=== PATIENT | female | born 1940 | race American Indian/Alaskan Native ===

== ENCOUNTER 2019-04-05 09:17 | Outpatient (CLI) | payer MEDICARE ==
--- NOTE | 2019-04-06 15:59 | Cat Scan Report ---
PROCEDURE: CT ANGIO ABD/FEMORAL ABD AORTA HISTORY: ATHEROSCLEROSIS OF [place] ARTERIES OF EXTREMITIES WITH INTERMITTE FINDINGS: Contrast-enhanced CT angiography of the abdomen, pelvis and both legs was performed followi ng the intravenous administration of iodinated contrast. Sagittal and coronal MIP reformatted images were generated. The heart is normal in size. There is bibasilar atelectasis. There is a hiatal hernia. ABDOMEN: The abdominal aorta is normal in size. There is atherosclerosis of abdominal aorta and there are suraj ons of aortic mural thrombus. There is a mild stenosis of the origin of the celiac axis and mild stenosis of the origin of the supe rior mesenteric artery. The inferior mesenteric artery is patent. There is a stent in the proximal aspect of the left renal artery. The left renal artery is patent. Th e right renal artery is patent. There is a left lobe hepatic cyst. There is mild fatty infiltration of the liver. There is a splenule . The spleen is normal in size. The adrenal glands are within normal limits. No focal pancreatic lesion is seen. There is no renal or ureteral calculus Pelvis: The right and left common iliac, external iliac and common femoral arteries appear patent. Both inter nal iliac arteries are patent proximally but are not well seen distally. There is a normal appendix. There is no evidence of diverticulitis. There has been a hysterectomy. The urinary bladder is within normal limits. CTA right leg: There is a moderate stenosis of the origin of the right superficial femoral artery but the vessel rem ains patent. The deep femoral artery is patent. The popliteal artery is atherosclerotic and somewhat small, but remains patent. Below the knee, the anterior tibial artery is patent and continues to the level of the ankle. It crosses the ankle as a patent dorsalis pedis. The tibioperoneal trunk is occluded. The peroneal artery is occluded. The posterior tibial artery is occluded proximally. There is reconstitution the posterior tibial for a short segment in the mid calf but occludes distally. There is reconstitution of a small medial plantar arch. CTA left leg: There is mild stenosis of the origin of the superficial femoral artery but the vessel remains patent. The deep femoral artery is patent. There are several moderate stenoses of the distal SFA but the ves lanie remains patent. The popliteal artery is patent. Below the knee the anterior tibial artery is patent. It displays several short small short segment st enosis in its midportion but remains patent. It crosses the ankle as a patent dorsalis pedis. The tib ioperoneal trunk is patent. The peroneal artery is patent to the level of the ankle. The posterior ti bial artery is not seen and is occluded. No medial plantar arch is seen. IMPRESSION: Hiatal hernia CTA ABDOMEN: Atherosclerosis of the abdominal aorta without aneurysmal dilation of the aorta Pelvis: The common iliac, external iliac and common femoral arteries are atherosclerotic but patent CTA right leg: moderate stenosis of origin of right SFA Single vessel runoff to right ankle via patent anterior tibial artery CTA left leg: Two vessel runoff to the left ankle via anterior tibial and peroneal arteries This document is electronically signed by Malick Pablo MD., April 06 2019 03:56:28 PM ET
== END 2019-04-05 09:18 | disposition home or self-care (01) ==
LOC: CT 09:17
PROVIDERS: ATTEND Surgery Vascular Surgery
DX: K44.9 Diaphragmatic hernia without obstruction or gangrene (principal); I70.0 Atherosclerosis of aorta; I77.4 Celiac artery compression syndrome; K76.0 Fatty (change of) liver, not elsewhere classified
CPT/HCPCS: 36415; 75635; 82565; 84520; Q9967

== ENCOUNTER 2019-04-19 11:15 | Outpatient (CLI) | payer MEDICARE ==
--- NOTE | 2019-05-04 12:53 | Magnetic Resonance Report ---
MRI LUMBAR SPINE 04/19/2019 INDICATION / CLINICAL INFORMATION: LOW BACK PAIN. COMPARISON: None available. FINDINGS: GENERAL OBSERVATIONS: Unenhanced and enhanced MR images of the lumbar spine were obtained. Correlatio n is made to CT images of the abdomen from 04/05/2019. There is no evidence of acute abnormality. [id number] ANALYSIS: L5-S1: Disc profile is well preserved. Mild facet degenerative changes are present. L4-5: Grade 1 anterolisthesis associated with prominent facet degenerative changes and diffuse disc b ulging, slightly more pronounced on the left. Moderate central canal narrowing is present, with super imposed left lateral recess narrowing and encroachment. L3-4: Unremarkable. L2-3: Minimal diffuse disc bulging. L1-2: Unremarkable. Small central protrusions or superimposed on diffuse disc bulging at the T12-L1 and T11-12 levels. BONE MARROW: There is a focal area of bone marrow signal abnormality in the right posterior aspect of L5, which corresponds to an area of increased bone density in a pattern consistent with bone island is seen on the prior CT scan of the abdomen. There is evidence of a hemangioma present in the right upper aspect of the L4 vertebral body. SPINAL CORD/CAUDA EQUINA: Unremarkable. PARASPINAL SOFT TISSUES: No significant abnormality. IMPRESSION: Degenerative changes as described above, including grade 1 anterolisthesis with left lateralization a t L4-5. (Note: The date on the images is 04/19/2019. They are presented to me for interpretation on 05/05/2019.) Signer Name: Gil Weathers MD Signed: 05/04/2019 12:48 PM Workstation Name: [id number]
== END 2019-04-19 11:16 | disposition home or self-care (01) ==
LOC: MRI 11:15
PROVIDERS: ATTEND Surgery Vascular Surgery
DX: M43.16 Spondylolisthesis, lumbar region (principal); M48.061 Spinal stenosis, lumbar region without neurogenic claudication; M51.26 Other intervertebral disc displacement, lumbar region; I10 Essential (primary) hypertension; K21.9 Gastro-esophageal reflux disease without esophagitis; Z90.710 Acquired absence of both cervix and uterus
CPT/HCPCS: 72158; A9577

== ENCOUNTER 2019-11-15 08:24 | Day surgery (SDC) | payer MEDICARE ==
[2019-11-15 09:07] LABS: Basophils # (Auto) 0.1 K/mm3 (0.0-0.1); Basophils % (Auto) 1.3 % (0.0-1.8); Eosinophils # (Auto) 0.3 K/mm3 (0.0-0.4); Eosinophils % (Auto) 3.3 % (0.0-4.3); Hematocrit 36.3 % (30.3-42.9); Lymphocytes # (Auto) 2.5 K/mm3 (1.2-5.4); Lymphocytes % (Auto) 30.9 % (13.4-35.0); Mean Corpuscular HGB Conc 33 % (30-34); Mean Corpuscular Volume 77 fl (79-97); Monocytes # (Auto) 0.7 K/mm3 (0.0-0.8); Monocytes % (Auto) 8.5 % (0.0-7.3); Platelet Count 329 K/mm3 (140-440); Red Blood Count 4.72 M/mm3 (3.65-5.03); Red Cell Distribution Width 16.9 % (13.2-15.2)
[2019-11-15] MEDS: SODIUM CHLORIDE 0.9% 500 ML 500 ML IV SCH ×2 (09:26→12:48)
[2019-11-15 09:35] LABS: INR 1.01 (0.87-1.13); Partial Thromboplastin Time 31.4 Sec. (24.2-36.6)
[2019-11-15 10:10] LABS: Calcium 9.7 mg/dL (8.4-10.2)
[2019-11-15] MEDS ORDERED: HEPARIN/NS 5000 UNIT/500ML 1,000 ML IR ONE (12:01)
[2019-11-15] MEDS ORDERED: NITROGLYCERIN SYRINGE 3 ML ONE (12:02)
[2019-11-15] MEDS ORDERED: VERAPAMIL 5 MG/2 ML INJ ONE (12:02)
[2019-11-15] MEDS: fentaNYL 100 MCG/2 ML INJ ONE ×3 (12:24→13:20)
[2019-11-15] MEDS: MIDAZOLAM 2 MG/2 ML INJ ONE ×3 (12:24→13:20)
[2019-11-15] MEDS: LIDOCAINE (2%) 20 MG/1 ML VIAL 20 ML MDV INFILTRATI ONE ×2 (12:26→14:15)
[2019-11-15] MEDS: HEPARIN 10,000 UNITS/10 ML VIAL ONE ×3 (12:38→13:16)
[2019-11-15] MEDS ORDERED: ONDANSETRON 4 MG/2 ML INJ ONE (13:57)
[2019-11-15] MEDS ORDERED: HEPARIN/NS 5000 UNIT/500ML 500 ML IR ONE (14:13)
--- NOTE | 2019-11-15 15:56 | Short Stay Summary ---
Short Stay Documentation Date of service: 11/15/19 Narrative H&P: See H&P - History H&P: obtained from office - Allergies and Medications Current Medications: Allergies Tetracyclines Allergy (Verified 10/25/13 13:31) Unknown Home Medications Medication Instructions Recorded Confirmed Last Taken Type Glimepiride [Amaryl] 2 mg PO QAM 05/07/16 11/15/19 11/14/19 History 2 mg Atorvastatin [Lipitor] 40 mg PO QHS #30 tab 05/08/16 11/15/19 11/15/19 Rx 40 mg Potassium Chloride [Klor-Con 8] 8 meq PO QDAY #30 tablet 05/08/16 11/15/19 11/15/19 Rx 8 meq amLODIPine 10 mg PO DAILY #30 tab 05/08/16 11/15/19 11/15/19 Rx 10 mg Aspirin [Adult Aspirin] 81 mg PO DAILY 11/15/19 11/15/19 11/15/19 History 81 mg Clopidogrel [Plavix] 75 mg PO DAILY 11/15/19 11/15/19 11/15/19 History 75 mg Doxazosin [Cardura] 4 mg PO DAILY 11/15/19 11/15/19 11/15/19 History 4 mg Active Medications Sodium Chloride (Nacl 0.9% 500 Ml) 500 mls @ 50 mls/hr IV DIRECT ALYSSA Last Admin: 11/15/19 12:48 Dose: 50 mls/hr Documented by: - Brief post op/procedure progress note Date of procedure: 11/15/19 Pre-op diagnosis: Peripheral Vascular Disease w/ Symptomatic Left Subclavian Artery Occlusion Post-op diagnosis: same Procedure: 1. Ultrasound-Guided Access Left Common Femoral Artery 2. Ultrasound-Guided Access Left Radial Artery 3. Diagnostic Thoracic Aortogram (No Previous Films for Comparison) 4. Diagnostic Left Upper Extremity Arteriogram 5. Angioplasty of Left Subclavian Artery with 7 x 80 IN.Pact Drug-Coated Balloon x 2 6. Angioplasty and Stent of Left Axillary Artery with 6 x 120 IN.Pact Drug- Coated Balloon and 6 x 5 cm Viabahn Stent Graft 7. Closure of Left Femoral Arteriotomy with ProGlide Closure Device 8. Radiologic Supervision and Interpretation Anesthesia: local, other (Monitored Moderate Sedation) Surgeon: MONA LEDEZMA Estimated blood loss: minimal Pathology: none Condition: stable - Disposition Condition at discharge: Good Disposition: [id number] TO HOME OR SELFCARE Short Stay Discharge Plan Activity: other (no heavy lifting with left arm. No strenuous activity for 24 hours) Wound: remove dressing (from left groin and left wrist in 24 hours) Follow up with: MONA LEDEZMA MD [Staff Physician] - 14 Days Prescriptions: Aspirin EC [Halfprin EC] 81 mg PO QDAY #90 tablet. HYDROcodone/APAP 7.5-325 [Porcupine 7.5/325] 1 each PO Q6HR PRN #30 tablet PRN Reason: Pain
--- NOTE | 2019-11-15 16:01 | Operative Report ---
Operative Report Operative Report: Date of Procedure: 11/15/2019 Pre-operative Diagnosis: Peripheral Vascular Disease with Symptomatic Left Subc lavian Artery Occlusion Post-operative Diagnosis: Same Procedure(s): 1. Ultrasound-Guided Access Left Common Femoral Artery 2. Ultrasound-Guided Access Left Radial Artery 3. Diagnostic Thoracic Aortogram (No Previous Films for Comparison) 4. Diagnostic Left Upper Extremity Arteriogram 5. Angioplasty of Left Subclavian Artery with 7 x 80 IN.Pact Drug-Coated Balloon x 2 6. Angioplasty and Stent of Left Axillary Artery with 6 x 120 IN.Pact Drug- Coated Balloon and 6 x 5 cm Viabahn Stent Graft 7. Closure of Left Femoral Arteriotomy with ProGlide Closure Device 8. Radiologic Supervision and Interpretation Surgeon: Garth Lopez M.D. Landscape Account Manager: Ralph Anesthesia: Local and IV Sedation EBL: Minimal Counts: Correct Complications: None Condition: Stable Specimen: None Indication: The patient is a 79-year-old female with a history of peripheral vascular disease who was found to have a 40 point differential between her right and left systolic blood pressures. An arterial duplex of her upper extremities revealed a subclavian artery occlusion. She described complaints of left upper extremity weakness and a history of dropping things with her left hand. Given this she was offered a diagnostic thoracic aortogram with a selective subclavian arteriogram and possible intervention. She was given the risk, benefits, and alternative procedures and consented to the procedure. Angiographic Findings: The diagnostic aortogram revealed that the brachiocephalic artery was patent without significant flow-limiting stenosis. The proximal right subclavian and proximal right common carotid artery were both patent without significant flow- limiting stenosis. The proximal left common carotid artery was patent without significant flow-limiting stenosis. The proximal left subclavian artery was patent however there was an occlusion approximately centimeters after the thyrocervical trunk with what appeared to be reconstitution in the proximal axillary artery. The left lower extremity arteriogram that the remainder of the axillary artery was patent without significant flow-limiting stenosis. The patient had a radial artery that originated from the axillary artery and was patent throughout its course. The brachial artery was patent throughout its course without any significant flow-limiting stenosis. The ulnar artery and interosseous artery were both patent without any evidence of flow-limiting stenosis. After intervention the subclavian artery and axillary artery were both patent with approximately 15% residual stenosis. Description of Procedure: The patient was brought to the [facility] and laid in supine position. After a timeout was performed her left groin and left wrist were prepped and draped in normal sterile fashion. Ultrasound was used to identify the left common femoral artery and confirm. Once patency was confirmed the overlying skin and soft tissue was anesthetized with lidocaine. An 11 blade was used to make a small stab incision and a curved hemostat was used to bluntly dissect down to the anterior surface of the common femoral artery under ultrasound guidance. A 21- gauge micropuncture needle was used with ultrasound guidance to enter the left common femoral artery and a 0.018 micropuncture wire was advanced into the artery. The needle was removed and exchanged for micropuncture sheath and after removing the wire and dilator a 0.035 Bentson wire was advanced into the aorta under fluoroscopy. The micropuncture sheath was exchanged for 5 [place]ian sheath and then a 5 [place]ian pigtail was advanced into the thoracic aorta under fluoroscopy. A diagnostic thoracic aortogram was performed with the previously described findings. I then used a vertebral catheter and the Bentson wire to cannulate the proximal subclavian artery and then I exchanged the 5 [place] sheath for a 7 [place]ian 65 cm destination sheath by Seldinger technique. At this point I systemically heparinized the patient with 3000 units of heparin IV. I was able to cannulate the occluded portion of the subclavian artery using a 0.018 V18 wire and a Navicross catheter however I was unable to reenter the axillary artery. I decided to attempt to cross the occlusion in retrograde fashion. I used ultrasound to identify the radial artery and used micropuncture technique to access the artery in retrograde fashion after anesthetizing the skin with lidocaine. I placed a 5 [place] sheath by Seldinger technique and injected a radial cocktail that included nitroglycerin, verapamil, and heparin. I advanced a vertebral catheter and a Bentson wire into the axillary artery and was able to cross the occluded axillary artery using the Bentson wire and vertebral catheter. I was able to enter the occluded subclavian artery using the V 18 wire and the vertebral catheter. I used a Tulip Snare Catheter to snare the V 18 wire and pulled the wire through the left femoral artery sheath. I then advanced the Navicross Catheter over the V 18 wire and through the axillary artery which was confirmed by arteriogram. At that point I performed the left lower extremity arteriogram which was previously described. I advanced the V 18 wire down the arm and then performed angioplasty of the axillary artery using a 6 x 120 IN.Pact Drug-Coated Balloon. I performed angioplasty of the subclavian artery using two 7 x 80 IN.Pact Drug-Coated Balloons. This resulted in less than 15% residual stenosis within the subclavian artery however there was a small segment of the axillary artery with a residual stenosis of approximately 70%. I performed additional angioplasty of this area however the residual stenosis persisted so I placed a 6 x 5 cm Viabahn Stent Graft I dilated with a 6 mm balloon with a result of less than 10% residual stenosis. At this point I remove the V 18 wire and placed a Bentson wire and used a Pro-glide closure device to close the left femoral arteriotomy, removing the sheath. A sterile dressing was then applied to the left groin. A TR Band was placed on the left radial artery after removing the sheath and the patient was transported to the recovery area in stable condition.
[2019-11-15 17:35] VITALS: BP 168/73
== END 2019-11-15 17:31 | disposition home or self-care (01) ==
LOC: CATHLABREC 08:24
PROVIDERS: ATTEND Surgery Vascular Surgery
DX: I70.8 Atherosclerosis of other arteries (principal); I42.9 Cardiomyopathy, unspecified; I73.9 Peripheral vascular disease, unspecified; I10 Essential (primary) hypertension; K21.9 Gastro-esophageal reflux disease without esophagitis; Z79.899 Other long term (current) drug therapy; Z79.82 Long term (current) use of aspirin; Z90.710 Acquired absence of both cervix and uterus; Z87.442 Personal history of urinary calculi; Z82.61 Family history of arthritis; Z88.8 Allergy status to other drugs, medicaments and biological substances; Z82.49 Family history of ischemic heart disease and other diseases of the circulatory system; Z98.890 Other specified postprocedural states
CPT/HCPCS: 36221; 36415; 37236; 37246; 75605; 75710; 76937; 80048; 85025; 85610; 85730; 99156; 99157; C1725; C1760; C1769; C1773; C1874; C1887; C1894; C2623; J1644; J2250; J2405; J3010; J7040; 0505T; 37247; Q9967

== ENCOUNTER 2019-12-01 11:47 | Inpatient (IN) | payer MEDICARE ==
[2019-12-01] MEDS ORDERED: SODIUM CHLORIDE 0.9% 1000 ML 1,000 ML IV ONE (13:06)
--- NOTE | 2019-12-01 13:23 | Emergency Department Report ---
<RASHMI PLUMMER - Last Filed: 12/01/19 17:15> ED GI Bleed HPI - General Chief complaint: GI Bleed Stated complaint: GI BLEED/ABD PAIN Time Seen by Provider: 12/01/19 12:49 - Related Data Home Medications Medication Instructions Recorded Confirmed Last Taken Glimepiride [Amaryl] 2 mg PO QAM 05/07/16 11/15/19 11/14/19 2 mg Aspirin [Adult Aspirin] 81 mg PO DAILY 11/15/19 11/15/19 11/15/19 81 mg Clopidogrel [Plavix] 75 mg PO DAILY 11/15/19 11/15/19 11/15/19 75 mg Doxazosin [Cardura] 4 mg PO DAILY 11/15/19 11/15/19 11/15/19 4 mg Previous Rx's Medication Instructions Recorded Last Taken Type Atorvastatin [Lipitor] 40 mg PO QHS #30 tab 05/08/16 11/15/19 Rx 40 mg Potassium Chloride [Klor-Con 8] 8 meq PO QDAY #30 tablet 05/08/16 11/15/19 Rx 8 meq amLODIPine 10 mg PO DAILY #30 tab 05/08/16 11/15/19 Rx 10 mg Aspirin EC [Halfprin EC] 81 mg PO QDAY #90 tablet. 11/15/19 Unknown Rx HYDROcodone/APAP 7.5-325 [[place] 1 each PO Q6HR PRN #30 tablet 11/15/19 Unknown Rx 7.5/325] Allergies Allergy/AdvReac Type Severity Reaction Status Date / Time Tetracyclines Allergy Unknown Verified 10/25/13 13:31 ED Past Medical Hx - Medications Home Medications: Home Medications Medication Instructions Recorded Confirmed Last Taken Type Glimepiride [Amaryl] 2 mg PO QAM 05/07/16 11/15/19 11/14/19 History 2 mg Atorvastatin [Lipitor] 40 mg PO QHS #30 tab 05/08/16 11/15/19 11/15/19 Rx 40 mg Potassium Chloride [Klor-Con 8] 8 meq PO QDAY #30 tablet 05/08/16 11/15/19 11/15/19 Rx 8 meq amLODIPine 10 mg PO DAILY #30 tab 05/08/16 11/15/19 11/15/19 Rx 10 mg Aspirin EC [Halfprin EC] 81 mg PO QDAY #90 tablet. 11/15/19 Unknown Rx Aspirin [Adult Aspirin] 81 mg PO DAILY 11/15/19 11/15/19 11/15/19 History 81 mg Clopidogrel [Plavix] 75 mg PO DAILY 11/15/19 11/15/19 11/15/19 History 75 mg Doxazosin [Cardura] 4 mg PO DAILY 11/15/19 11/15/19 11/15/19 History 4 mg HYDROcodone/APAP 7.5-325 [[place] 1 each PO Q6HR PRN #30 tablet 11/15/19 Unknown Rx 7.5/325] ED Course - Reevaluation(s) Reevaluation #1: 12/01/19 17:08 While in the ED patient developed chest pain. EKG shows sinus tach without signs of ischemia. Troponin sent and initial set negative. Patient is pain- free at this time. Calvin reports that rectal exam was positive for gross blood. Patient's family member showed me pictures of patient's coffee-ground emesis and black stool while at home. Patient is unclear how long her stool has been back because she does not look at her bowel movements. Patient does take aspirin and Plavix - Consultations Consultation #1: 12/01/19 17:08 case d/w Dr Roula Lorenzo (GI), recommend Protonix bolus followed by drip. Will consult for evaluation ED Medical Decision Making - Lab Data Result diagrams: 12/01/19 13:21 12/01/19 13:21 Lab Results 12/01/19 12/01/19 12/01/19 Range/Units 13:21 13:21 13:21 WBC 11.0 (4.5-11.0) K/mm3 RBC 2.82 L (3.65-5.03) M/mm3 Hgb 7.1 L (10.1-14.3) gm/dl Hct 21.9 L (30.3-42.9) % MCV 78 L (79-97) fl MCH 25 L (28-32) pg MCHC 33 (30-34) % RDW 16.6 H (13.2-15.2) % Plt Count 283 (140-440) K/mm3 Lymph % (Auto) 11.3 L (13.4-35.0) % [place] % (Auto) 4.1 (0.0-7.3) % Eos % (Auto) 0.3 (0.0-4.3) % Baso % (Auto) 0.9 (0.0-1.8) % Lymph # 1.2 (1.2-5.4) K/mm3 [place] # 0.5 (0.0-0.8) K/mm3 Eos # 0.0 (0.0-0.4) K/mm3 Baso # 0.1 (0.0-0.1) K/mm3 Seg Neutrophils % 83.4 H (40.0-70.0) % Seg Neutrophils # 9.2 H (1.8-7.7) K/mm3 PT 14.7 (12.2-14.9) Sec. INR 1.13 (0.87-1.13) APTT 24.0 L (24.2-36.6) Sec. Sodium 142 (137-145) mmol/L Potassium 4.3 (3.6-5.0) mmol/L Chloride 105.3 (98-107) mmol/L Carbon Dioxide 15 L (22-30) mmol/L Anion Gap 26 mmol/L BUN 44 H (7-17) mg/dL Creatinine 1.2 (0.7-1.2) mg/dL Estimated GFR 53 ml/min BUN/Creatinine Ratio 37 % Glucose 204 H (65-100) mg/dL Lactic Acid (0.7-2.0) mmol/L Calcium 8.1 L (8.4-10.2) mg/dL Total Bilirubin < 0.20 (0.1-1.2) mg/dL AST 10 (5-40) units/L ALT 7 (7-56) units/L Alkaline Phosphatase 84 (35-129) units/L Troponin T (0.00-0.029) ng/mL Total Protein 5.8 L (6.3-8.2) g/dL Albumin 2.5 L (3.9-5) g/dL Albumin/Globulin Ratio 0.8 % Lipase 37 (13-60) units/L Urine Color (Yellow) Urine Turbidity (Clear) Urine pH (5.0-7.0) Ur Specific Imogene (1.003-1.030) Urine Protein (Negative) mg/dL Urine Glucose (UA) (Negative) mg/dL Urine Ketones (Negative) mg/dL Urine Blood (Negative) Urine Nitrite (Negative) Urine Bilirubin (Negative) Urine Urobilinogen (<2.0) mg/dL Ur Leukocyte Esterase (Negative) Urine WBC (Auto) (0.0-6.0) /HPF Urine RBC (Auto) (0.0-6.0) /HPF U Epithel Cells (Auto) (0-13.0) /HPF Urine Bacteria (Auto) (Negative) /HPF Urine Mucus /HPF Blood Type Antibody Screen Crossmatch 12/01/19 12/01/19 12/01/19 Range/Units 15:15 15:15 15:27 WBC (4.5-11.0) K/mm3 RBC (3.65-5.03) M/mm3 Hgb (10.1-14.3) gm/dl Hct (30.3-42.9) % MCV (79-97) fl MCH (28-32) pg MCHC (30-34) % RDW (13.2-15.2) % Plt Count (140-440) K/mm3 Lymph % (Auto) (13.4-35.0) % [place] % (Auto) (0.0-7.3) % Eos % (Auto) (0.0-4.3) % Baso % (Auto) (0.0-1.8) % Lymph # (1.2-5.4) K/mm3 [place] # (0.0-0.8) K/mm3 Eos # (0.0-0.4) K/mm3 Baso # (0.0-0.1) K/mm3 Seg Neutrophils % (40.0-70.0) % Seg Neutrophils # (1.8-7.7) K/mm3 PT (12.2-14.9) Sec. INR (0.87-1.13) APTT (24.2-36.6) Sec. Sodium (137-145) mmol/L Potassium (3.6-5.0) mmol/L Chloride (98-107) mmol/L Carbon Dioxide (22-30) mmol/L Anion Gap mmol/L BUN (7-17) mg/dL Creatinine (0.7-1.2) mg/dL Estimated GFR ml/min BUN/Creatinine Ratio % Glucose (65-100) mg/dL Lactic Acid 1.90 (0.7-2.0) mmol/L Calcium (8.4-10.2) mg/dL Total Bilirubin (0.1-1.2) mg/dL AST (5-40) units/L ALT (7-56) units/L Alkaline Phosphatase (35-129) units/L Troponin T < 0.010 (0.00-0.029) ng/mL Total Protein (6.3-8.2) g/dL Albumin (3.9-5) g/dL Albumin/Globulin Ratio % Lipase (13-60) units/L Urine Color (Yellow) Urine Turbidity (Clear) Urine pH (5.0-7.0) Ur Specific [place]ogene (1.003-1.030) Urine Protein (Negative) mg/dL Urine Glucose (UA) (Negative) mg/dL Urine Ketones (Negative) mg/dL Urine Blood (Negative) Urine Nitrite (Negative) Urine Bilirubin (Negative) Urine Urobilinogen (<2.0) mg/dL Ur Leukocyte Esterase (Negative) Urine WBC (Auto) (0.0-6.0) /HPF Urine RBC (Auto) (0.0-6.0) /HPF U Epithel Cells (Auto) (0-13.0) /HPF Urine Bacteria (Auto) (Negative) /HPF Urine Mucus /HPF Blood Type O POSITIVE Antibody Screen Negative Crossmatch See Detail 12/01/19 Range/Units 15:40 WBC (4.5-11.0) K/mm3 RBC (3.65-5.03) M/mm3 Hgb (10.1-14.3) gm/dl Hct (30.3-42.9) % MCV (79-97) fl MCH (28-32) pg MCHC (30-34) % RDW (13.2-15.2) % Plt Count (140-440) K/mm3 Lymph % (Auto) (13.4-35.0) % [place] % (Auto) (0.0-7.3) % Eos % (Auto) (0.0-4.3) % Baso % (Auto) (0.0-1.8) % Lymph # (1.2-5.4) K/mm3 [place] # (0.0-0.8) K/mm3 Eos # (0.0-0.4) K/mm3 Baso # (0.0-0.1) K/mm3 Seg Neutrophils % (40.0-70.0) % Seg Neutrophils # (1.8-7.7) K/mm3 PT (12.2-14.9) Sec. INR (0.87-1.13) APTT (24.2-36.6) Sec. Sodium (137-145) mmol/L Potassium (3.6-5.0) mmol/L Chloride (98-107) mmol/L Carbon Dioxide (22-30) mmol/L Anion Gap mmol/L BUN (7-17) mg/dL Creatinine (0.7-1.2) mg/dL Estimated GFR ml/min BUN/Creatinine Ratio % Glucose (65-100) mg/dL Lactic Acid (0.7-2.0) mmol/L Calcium (8.4-10.2) mg/dL Total Bilirubin (0.1-1.2) mg/dL AST (5-40) units/L ALT (7-56) units/L Alkaline Phosphatase (35-129) units/L Troponin T (0.00-0.029) ng/mL Total Protein (6.3-8.2) g/dL Albumin (3.9-5) g/dL Albumin/Globulin Ratio % Lipase (13-60) units/L Urine Color Yellow (Yellow) Urine Turbidity Clear (Clear) Urine pH 5.0 (5.0-7.0) Ur Specific [place] 1.018 (1.003-1.030) Urine Protein <15 mg/dl (Negative) mg/dL Urine Glucose (UA) 50 (Negative) mg/dL Urine Ketones Neg (Negative) mg/dL Urine Blood Lg (Negative) Urine Nitrite Neg (Negative) Urine Bilirubin Neg (Negative) Urine Urobilinogen < 2.0 (<2.0) mg/dL Ur Leukocyte Esterase Lg (Negative) Urine WBC (Auto) 6.0 (0.0-6.0) /HPF Urine RBC (Auto) 5.0 (0.0-6.0) /HPF U Epithel Cells (Auto) 5.0 (0-13.0) /HPF Urine Bacteria (Auto) 1+ (Negative) /HPF Urine Mucus Few /HPF Blood Type Antibody Screen Crossmatch - EKG Data -: EKG Interpreted by De EKG shows normal: sinus rhythm, ST-T waves (no stemi) Rate: tachycardia (117) - Radiology Data Radiology results: report reviewed CT abdomen pelvis w con INDICATION: coffee ground emesis, hematochezia. TECHNIQUE: All CT scans at this location are performed using the following dose modulation technique: Automated exposure control. Helical slices were obtained through the abdomen and pelvis. 100 cc of Omnipaque 300 is administered. COMPARISON: CT scan dated 04/05/2019 FINDINGS: Abdomen: There is mild linear atelectasis or scar in the lung bases. Liver, spleen, pancreas, adrenal glands, and right kidney shows no acute abnormality. There is decreased attenuation in the mid and lower pole of the left kidney which is a new finding since previous exam. There is a stent in the left renal artery I suspect restenosis stent. There is atherosclerotic disease in the aorta and iliac arteries. There is no inflammatory change. There is no obstruction. There is no free air. The appendix is unremarkable. There are scattered diverticula throughout the colon. There is no free air. There is some wall thickening noted in the left colon Pelvis: There is sigmoid diverticulosis. There is no CT evidence of diverticulitis. There is no inflammatory change. On review of bone windows, no acute osseous abnormalities are seen. IMPRESSION: 1. There is wall thickening noted in the lef t colon possibly representing colitis. This is not specific. There are diverticula noted throughout the colon. There is no CT evidence of diverticulitis. There is decreased attenuation in the mid and lower left kidney. The left kidney is atrophic relative to the right. The appearance is indicative of decreased perfusion. There appears to be stenosis or occlusion of the left renal artery. There is a left renal artery stent. - Medical Decision Making Patient presents with acute anemia, coffee-ground emesis, black stool, bright red blood on rectal exam. CT suggestive of diverticular disease possible colitis. Case discussed with GI and patient placed on Protonix drip with bolus. 1 unit of PRBCs ordered. Case discussed with hospitalist for admission. ED Disposition Clinical Impression: Rectal bleeding, Coffee ground emesis, Acute anemia, PAD (peripheral artery disease), CAD (coronary artery disease), Chest pain Disposition: -09 OP ADMIT IP TO THIS HOSP Is pt being admited?: Yes Condition: Stable Time of Disposition: 17:12 <CALVIN DAY - Last Filed: 12/01/19 18:01> ED GI Bleed HPI - General Source: EMS Mode of arrival: Stretcher Limitations: No Limitations - History of Present Illness Initial comments: 79-year-old -British female patient with history of hypertension, diabetes, HLD, CAD, PVD, and thyroid disease presents with complaints of black vomit and black stools starting around 4 AM this morning. She denies any history of GI bleeds. She admits to intermittent mid abdominal pain. 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 She also has history of left kidney stent placement. She denies any fever/chills/sweats or history of GERD. She states her symptoms began with 3 episodes of watery bloody diarrhea with clots of blood noted in her stools. She states her vomit appeared to look like coffee grounds. She denies any recent travel outside the [place]. MD complaint: coffee ground emesis, gross hematochezia -: Gradual Severity scale (0 -10): 0 Quality: cramping, sharp Improves with: none Worsens with: none Associated Symptoms: nausea, vomiting. denies: fever/chills, malaise ED Review of Systems ROS: Stated complaint: GI BLEED/ABD PAIN Other details as noted in HPI Constitutional: denies: chills, diaphoresis, fever, malaise Respiratory: denies: cough, shortness of breath Cardiovascular: denies: chest pain, palpitations Endocrine: denies: excessive sweating Gastrointestinal: abdominal pain, nausea, vomiting, diarrhea, hematemesis, hematochezia. denies: constipation, melena Neurological: denies: headache, weakness, paresthesias Hematological/Lymphatic: denies: easy bleeding, easy bruising ED Past Medical Hx - Past Medical History Previous Medical History?: Yes Hx Hypertension: Yes Hx Diabetes: Yes Hx GERD: Yes Hx Kidney Stones: Yes Hx Asthma: No Additional medical history: acid reflux - Surgical History Past Surgical History?: Yes Additional Surgical History: hysterectomy, Stent placed in artery and stent plac ed in Kidney. - Social History Smoking Status: Never Smoker Substance Use Type: None ED Physical Exam - General Limitations: No Limitations General appearance: alert, in no apparent distress - Head Head exam: Present: atraumatic, normocephalic - Eye Eye exam: Present: normal appearance. Absent: scleral icterus - Neck Neck exam: Present: normal inspection, full ROM - Respiratory Respiratory exam: Present: normal lung sounds bilaterally. Absent: respiratory distress - Cardiovascular Cardiovascular Exam: Present: normal rhythm, tachycardia. Absent: systolic murmur, diastolic murmur, rubs, gallop - GI/Abdominal GI/Abdominal exam: Present: soft, tenderness (left side), normal bowel sounds. Absent: distended, guarding, rebound, rigid, organomegaly, mass - Extremities Exam Extremities exam: Present: normal inspection - Back Exam Back exam: Present: normal inspection. Absent: CVA tenderness (R), CVA tenderness (L) - Neurological Exam Neurological exam: Present: alert, oriented X3 - Psychiatric Psychiatric exam: Present: normal affect - Skin Skin exam: Present: warm, dry, intact, normal color. Absent: rash ED Course Vital Signs 12/01/19 12/01/19 12/01/19 12:07 12:14 12:15 Temperature 97.8 F Pulse Rate 104 H Respiratory 18 Rate Blood Pressure 161/74 161/74 O2 Sat by Pulse 98 100 97 Oximetry 12/01/19 12/01/19 12/01/19 12:31 12:45 13:00 Temperature Pulse Rate 106 H 106 H 108 H Respiratory 13 13 21 Rate Blood Pressure 161/74 161/74 188/97 O2 Sat by Pulse 99 99 99 Oximetry 12/01/19 12/01/19 12/01/19 13:15 13:31 13:45 Temperature Pulse Rate 103 H 102 H 104 H Respiratory 14 12 12 Rate Blood Pressure 188/97 188/97 188/97 O2 Sat by Pulse 99 100 100 Oximetry 12/01/19 12/01/19 12/01/19 14:00 14:15 14:31 Temperature Pulse Rate 99 H 108 H 110 H Respiratory 15 18 16 Rate Blood Pressure 182/79 188/97 188/97 O2 Sat by Pulse 99 100 99 Oximetry 12/01/19 12/01/19 12/01/19 15:09 15:15 15:30 Temperature Pulse Rate 129 H 131 H 121 H Respiratory 26 H 32 H 32 H Rate Blood Pressure 188/97 188/97 188/97 O2 Sat by Pulse 100 99 98 Oximetry 12/01/19 12/01/19 12/01/19 16:01 16:31 17:00 Temperature Pulse Rate 122 H 119 H 116 H Respiratory 19 29 H 17 Rate Blood Pressure 182/94 174/83 169/86 O2 Sat by Pulse Oximetry 12/01/19 17:31 Temperature Pulse Rate 122 H Respiratory 17 Rate Blood Pressure 174/83 O2 Sat by Pulse Oximetry ED Medical Decision Making - Lab Data Result diagrams: 12/01/19 13:21 12/01/19 13:21 - Medical Decision Making 79-year-old -British female here today with complaints of acute onset of coffee-ground emesis in melena x this morning. Patient currently on Plavix. History of CAD and recent stent placement in left subclavian artery. 11/15/19 hemoglobin = 12, hemoglobin today = 7.1. Blood pressure is elevated, however it is stable. Patient tachy in the 120s. CT abdomen shows possible colitis. Discussed patient with Dr. Plummer. Patiently currently on Protonix drip, two 1 liter boluses given, 1 unit of blood ordered. GI was consulted, Dr. Lorenzo to see patient and have an EGD in the morning. Patient to be admitted to the hospital. Critical care attestation.: If time is entered above; I have spent that time in minutes in the direct care of this critically ill patient, excluding procedure time.
[2019-12-01 13:49] LABS: Basophils # (Auto) 0.1 K/mm3 (0.0-0.1); Basophils % (Auto) 0.9 % (0.0-1.8); Eosinophils % (Auto) 0.3 % (0.0-4.3); Hematocrit 21.9 % (30.3-42.9); Hemoglobin 7.1 gm/dl (10.1-14.3); Lymphocytes # (Auto) 1.2 K/mm3 (1.2-5.4); Lymphocytes % (Auto) 11.3 % (13.4-35.0); Mean Corpuscular HGB Conc 33 % (30-34); Mean Corpuscular Volume 78 fl (79-97); Monocytes # (Auto) 0.5 K/mm3 (0.0-0.8); Monocytes % (Auto) 4.1 % (0.0-7.3); Platelet Count 283 K/mm3 (140-440); Red Blood Count 2.82 M/mm3 (3.65-5.03); Red Cell Distribution Width 16.6 % (13.2-15.2)
[2019-12-01 13:58] LABS: INR 1.13 (0.87-1.13)
[2019-12-01 14:08] LABS: Alanine Aminotransferase 7 units/L (7-56); Albumin 2.5 g/dL (3.9-5); BUN/Creatinine Ratio 37; Blood Urea Nitrogen 44 mg/dL (7-17); Calcium 8.1 mg/dL (8.4-10.2); Hemolysis Index 38
[2019-12-01] MEDS ORDERED: MORPHINE 4 MG/1 ML INJ IV ONE (15:17)
[2019-12-01] MEDS ORDERED: SODIUM CHLORIDE 0.9% 500 ML 500 ML IV ONE (15:42)
[2019-12-01] MEDS ORDERED: PANTOPRAZOLE 40 MG INJ IV ONE ×2 (15:43→17:03)
[2019-12-01 16:33] LABS: Bacteria,Urine 1+ /HPF (Negative); Bilirubin,Urine NEG (Negative); Blood,Urine LG (Negative); Color,Urine Yellow (Yellow); Mucus,Urine FEW /HPF; Protein,Urine <15 mg/dL mg/dL (Negative); Urobilinogen,Urine < 2.0 mg/dL (<2.0)
--- NOTE | 2019-12-01 16:34 | Cat Scan Report ---
CT abdomen pelvis w con INDICATION: coffee ground emesis, hematochezia. TECHNIQUE: All CT scans at this location are performed using the following dose modulation technique: Automated exposure control. Helical slices were obtained through the abdomen and pelvis. 100 cc of Omnipaque 30 0 is administered. COMPARISON: CT scan dated 04/05/2019 FINDINGS: Abdomen: There is mild linear atelectasis or scar in the lung bases. Liver, spleen, pancreas, adrenal glands, and right kidney shows no acute abnormality. There is decreased attenuation in the mid and lower pole of the left kidney which is a new finding si nce previous exam. There is a stent in the left renal artery I suspect restenosis stent. There is ath erosclerotic disease in the aorta and iliac arteries. There is no inflammatory change. There is no obstruction. There is no free air. The appendix is unrem arkable. There are scattered diverticula throughout the colon. There is no free air. There is some wall thicke tami noted in the left colon Pelvis: There is sigmoid diverticulosis. There is no CT evidence of diverticulitis. There is no infla mmatory change. On review of bone windows, no acute osseous abnormalities are seen. IMPRESSION: 1. There is wall thickening noted in the left colon possibly representing colitis. This is not specif ic. There are diverticula noted throughout the colon. There is no CT evidence of diverticulitis. There is decreased attenuation in the mid and lower left kidney. The left kidney is atrophic relative to the right. The appearance is indicative of decreased perfusion. There appears to be stenosis or o cclusion of the left renal artery. There is a left renal artery stent. Signer Name: Hero Quiros MD Signed: 12/01/2019 4:30 PM Workstation Name: [id number]
--- NOTE | 2019-12-01 17:37 | Event Note ---
Date: 12/01/[address] Plummer; pt with melena/coffee ground emesis with acute anemia compared to recent labs. chart reviewed. tachycardic, BP stable. blood transfusions pending, pt to be started on PPI IV drip. will plan for EGD in AM or sooner if needed based on clinical course (please call for any hemodynamic changes, or worsening bleeding).
[2019-12-01] MEDS ORDERED: ACETAMINOPHEN 325 MG TAB PO PRN (21:36)
[2019-12-01] MEDS ORDERED: HYDROmorphone 1 MG/1 ML INJ IV PRN (21:36)
[2019-12-01] MEDS ORDERED: MORPHINE 2 MG/1 ML INJ IV PRN (21:36)
[2019-12-01] MEDS ORDERED: ONDANSETRON 4 MG/2 ML INJ IV PRN (21:36)
[2019-12-01] MEDS: PANTOPRAZOLE 80 MG in SODIUM CHLORIDE 0.9% 100 ML IV SCH (22:39)
[2019-12-02 00:34] LABS: Hematocrit 22.8 % (30.3-42.9); Hemoglobin 7.5 gm/dl (10.1-14.3)
[2019-12-02] MEDS: INSULIN LISPRO 100 UNIT/ML SUB-Q SCH ×3 (01:13→12:33)
[2019-12-02] MEDS: SODIUM CHLORIDE 0.9% 1000 ML 1,000 ML IV SCH ×3 (02:12→16:23)
[2019-12-02] MEDS: hydrALAZINE 20 MG/1 ML INJ IV PRN ×2 (05:23→16:23)
--- NOTE | 2019-12-02 06:40 | Event Note ---
Date: 12/01/19 See dictated H/P in reports
[2019-12-02] MEDS ORDERED: WATER FOR IRRIG STERILE 250 ML BOTTLE IR ONE (06:46)
[2019-12-02 06:56] LABS: Basophils # (Auto) 0.1 K/mm3 (0.0-0.1); Basophils % (Auto) 0.5 % (0.0-1.8); Eosinophils # (Auto) 0.2 K/mm3 (0.0-0.4); Eosinophils % (Auto) 1.9 % (0.0-4.3); Hematocrit 22.7 % (30.3-42.9); Hemoglobin 7.4 gm/dl (10.1-14.3); Lymphocytes # (Auto) 2.7 K/mm3 (1.2-5.4); Lymphocytes % (Auto) 23.8 % (13.4-35.0); Mean Corpuscular HGB Conc 33 % (30-34); Mean Corpuscular Volume 81 fl (79-97); Monocytes # (Auto) 0.9 K/mm3 (0.0-0.8); Monocytes % (Auto) 7.8 % (0.0-7.3); Platelet Count 246 K/mm3 (140-440); Red Cell Distribution Width 17.5 % (13.2-15.2)
[2019-12-02 07:26] LABS: Albumin 3.1 g/dL (3.9-5); Calcium 8.5 mg/dL (8.4-10.2)
[2019-12-02] MEDS ORDERED: propofoL 200 MG/20 ML VIAL IV ONE ×2 (08:03→08:12)
--- NOTE | 2019-12-02 08:06 | Anesthesia Day of Surgery ---
Anesthesia Day of Surgery - Day of Surgery Patient Examined: Yes Patient H&P Reviewed: Yes Patient is NPO: Yes
--- NOTE | 2019-12-02 08:08 | Anesthesia Consultation ---
Anesthesia Consult and Med Hx Date of service: 12/02/19 - Airway Anesthetic Teeth Evaluation: Poor (LOOSE lower right molar) ROM Head & Neck: Adequate Mental/Hyoid Distance: Adequate Mallampati Class: Class II Intubation Access Assessment: Good - Pre-Operative Health Status ASA Pre-Surgery Classification: ASA3, Emergency Proposed Anesthetic Plan: MAC - Pulmonary Hx Asthma: No COPD: No Hx Pneumonia: No - Cardiovascular System Hx Hypertension: Yes Hx Heart Attack/AMI: No (Cardiac enzymes negative) Hx Peripheral Vascular Disease: Yes - Central Nervous System Hx Psychiatric Problems: No - Gastrointestinal Hx Ulcer: Yes Hx Gastroesophageal Reflux Disease: Yes - Endocrine Hx Renal Disease: Yes (kidney stones with stent in place) Hx End Stage Renal Disease: No Hx Non-Insulin Dependent Diabetes: Yes - Other Systems Hx Cancer: No
[2019-12-02] MEDS ORDERED: fentaNYL 100 MCG/2 ML INJ ONE (08:12)
--- NOTE | 2019-12-02 08:43 | Post Anesthesia Evaluation ---
- Post Anesthesia Evaluation Patient Participated: Yes Airway Patent: Yes Stable Respiratory Function: Yes Nausea/Vomiting: No Temp > 96.8F: Yes Pain Manageable: Yes Adequeate Hydration: Yes Anesthesia Complications: No Block Receding Appropriately: Not Applicable Patient on Ventilator: No
[2019-12-02] MEDS ORDERED: LIDOCAINE MPF (2%) 20 MG/1 ML VIAL 5 ML ONE (09:00)
--- NOTE | 2019-12-02 10:33 | Operative Report ---
PROCEDURE: EGD with cold biopsy. INDICATIONS: 1. Anemia. 2. Gastrointestinal bleed. MEDICATIONS: Propofol per DENSITOMETRIST. COMPLICATIONS: None. DESCRIPTION OF PROCEDURE: The patient brought to procedure suite. The patient had the procedure discussed with her at length. All risks, complications, and benefits discussed after which the patient signed for the procedure performed. The patient was placed in left lateral decubitus position. Mouth block placed in the patient's oral cavity. After adequate sedation medication as above, endoscope placed in the mouth and brought to the level of the second portion of duodenum. Retroflexion view performed. The patient's vital signs remained stable throughout the procedure. FINDINGS: There was noted to be a medium hiatal hernia at GE junction at 37 cm from the gums. Esophagus otherwise appeared to be grossly normal. There were multiple small to medium 3-5 mm linear white base ulcers noted in the gastric antrum. Biopsies were taken and sent to pathology. There was a 1 cm mostly linear mainly white base ulcer noted in the duodenal bulb with a pigmented area, which may have been the area of bleeding. No stigmata requiring treatment was noted at this time. The duodenum otherwise appeared to be normal. Retroflexion view performed in the stomach showed no other pathology other than noted above. The patient tolerated the procedure well. No complications during the procedure. IMPRESSION: 1. Hiatal hernia. 2. Otherwise, normal esophagus. 3. Multiple shallow ulcers in the gastric antrum without bleeding stigmata with biopsies taken and sent to pathology. 4. Large ulcer in the duodenal bulb with a pigmented area, which most likely was the source of recent bleeding. No stigmata noted at this time, requiring treatment. 5. Otherwise, normal EGD. RECOMMENDATIONS: 1. Follow up biopsy results. 2. If H. pylori positive, treat. 3. PPI b.i.d. 4. Start p.o. 5. If stable in a.m., okay to discharge from GI standpoint. We will follow up as an outpatient. JOB# [id number] [facility]
--- NOTE | 2019-12-02 10:41 | History and Physical Report ---
CHIEF COMPLAINT: 1. Vomiting blood. 2. Black tarry stools. HISTORY OF PRESENT ILLNESS: A 79-year-old -[place] female with history of hypertension and type 2 diabetes, presents with hematemesis and black tarry stools. No lightheadedness. No syncope. This is the first episode of bleeding in her lifetime. No chest pain. No shortness of breath. PAST MEDICAL HISTORY: Significant for hypertension, type 2 diabetes, coronary artery disease, overactive bladder, and hyperlipidemia. PAST SURGICAL HISTORY: Unknown. FAMILY HISTORY: Hypertension. SOCIAL HISTORY: Does not smoke. No alcohol, no recreational drugs. PHYSICAL EXAMINATION: GENERAL: ____ female, cooperative during the examination. VITAL SIGNS: Blood pressure is 211/195, temperature is 99.7, pulse is 120, respirations are 30. HEENT: Slightly pale mucous membranes. NECK: Supple, no lymphadenopathy, no thyromegaly. LUNGS: Clear to auscultation and percussion. Good air entry. CARDIOVASCULAR: S1, S2 heard. No gallop, no murmur, no rub. Apical impulse in left fifth intercostal space in midclavicular line. ABDOMEN: Soft and benign. No hepatosplenomegaly. No guarding, no rigidity. Hernial orifices are normal. EXTREMITIES: Good pedal pulses. No pedal edema. RECTAL: Occult blood positive stool. LABORATORY DATA: Labs are significant for a white count of 11,000, H and H of 7.1 and 21.9, platelet count of 283,000. Electrolytes are normal. BUN is 44, creatinine is 1.2. Albumin is 2.5. Urine is negative. CT of the abdomen was normal. No acute findings. Mild thickening in the left colon, possibly representing colitis. ASSESSMENT AND PLAN: 1. Gastrointestinal bleed. The patient to get upper endoscopy and if necessary colonoscopy. Transfuse packed red blood cells as necessary. Monitor hemoglobin and hematocrit. IV Protonix drip. 2. Hypertensive emergency. The patient initiated on antihypertensives and IV hydralazine q. 3 p.r.n. 3. Type 2 diabetes. We will hold the oral hypoglycemics. We will ____ patient starts eating. 4. Hyperlipidemia. Hold the statins for now. Resume when patient starts eating. 5. Coronary artery disease. Going to hold Plavix for now. We will resume when the patient starts eating. 6. Deep venous thrombosis prophylaxis, on sequential compression devices and gastrointestinal prophylaxis. JOB# [id number] [facility]
[2019-12-02] MEDS: PANTOPRAZOLE 80 MG in SODIUM CHLORIDE 0.9% 100 ML IV SCH ×2 (10:45→21:11)
--- NOTE | 2019-12-02 11:52 | Consultation ---
REFERRING PHYSICIAN: Sammi Ward MD INDICATION: Gastrointestinal bleed. HISTORY OF PRESENT ILLNESS: The patient is a 79-year-old black female presents with signs of gastrointestinal bleed. The patient is on anticoagulation. The patient reports 2-3 days of black tarry stools. The patient subsequently came to the Emergency Room with complaints. She also reports some hematemesis. Reports some mild epigastric pain. She denies any bright red blood per rectum. Denies any weight loss. The patient subsequently came to the Emergency Room where she was noted to be anemic, heme positive stool and subsequently admitted and GI consulted. She denies any other specific complaints at this time. PAST MEDICAL HISTORY: Includes hypertension, diabetes, GERD, renal stones, status post stent placement in the kidney, surgery for hysterectomy. MEDICATIONS: Reviewed and updated in chart. ALLERGIES: No known drug allergies. SOCIAL HISTORY: Denies alcohol, tobacco or drug abuse. FAMILY HISTORY: Negative for colon cancer, IBD, or liver disease. REVIEW OF SYSTEMS: GENERAL: Reports some weakness. HEENT: No visual complaints or tinnitus. PULMONARY: No shortness of breath. No cough. No chest pain. GASTROINTESTINAL: Reports rectal bleeding. All points of 13-point review of systems otherwise negative. PHYSICAL EXAMINATION: VITAL SIGNS: Temperature of 99.2, pulse 96, respirations 20, blood pressure 146/92. GENERAL: Fairly nourished female in no acute distress. HEENT: Pupils equal, round and reactive. PULMONARY: Clear to auscultation bilaterally. CARDIOVASCULAR: Regular rhythm. Normal S1, S2. ABDOMEN: Positive bowel sounds, soft. SKIN: No obvious rashes. LABORATORY DATA: Pertinent for white count of 11.2, hemoglobin and hematocrit of 7.4 and 22.7, platelet count of 246. Chem-7 within normal limits except for BUN and creatinine of 28 and 1.4. Coags within normal limits. ASSESSMENT: A 79-year-old black female on antiplatelet agents, presents for signs of upper gastrointestinal bleed. PLAN: 1. N.p.o. 2. Follow hematocrit and transfuse as needed. 3. PPI IV drip. 4. Plan EGD today. 5. Further recommendation based on progress and results of the above. JOB# [id number] CAB/NTS
[2019-12-02 13:40] LABS: Hemoglobin 7.4 gm/dl (10.1-14.3)
[2019-12-02] MEDS: amLODIPine 10 MG TAB PO SCH (21:11)
[2019-12-02] MEDS: DOXAZOSIN 4 MG TAB PO SCH (21:12)
--- NOTE | 2019-12-02 21:44 | Progress Note ---
Assessment and Plan (1) GI bleed Current Visit: Yes Status: Acute Plan to address problem: Cont PPI's For EGD (2) Acute anemia Current Visit: Yes Status: Acute Plan to address problem: Transfuse pRBC (3) HTN (hypertension) Current Visit: Yes Status: Chronic Qualifiers: Hypertension type: essential hypertension Qualified Code(s): I10 - Essent ial (primary) hypertension Plan to address problem: Cont antihypertensives (4) DVT prophylaxis Current Visit: Yes Status: Acute Plan to address problem: On SCD's Subjective Date of service: 12/02/19 Principal diagnosis: GI bleed Interval history: Had melanotic stool today Objective - Constitutional Vitals: Vital Signs - 12hr 12/02/19 12/02/19 12/02/19 10:00 11:27 13:00 Temperature 98.5 F Pulse Rate 108 H Respiratory 18 Rate Blood Pressure 190/78 O2 Sat by Pulse 98 Oximetry 12/02/19 12/02/19 12/02/19 16:18 16:23 17:57 Temperature 98.0 F Pulse Rate Respiratory 18 22 Rate Blood Pressure 209/91 209/91 O2 Sat by Pulse Oximetry 12/02/19 19:29 Temperature 99.7 F H Pulse Rate 129 H Respiratory 18 Rate Blood Pressure 185/92 O2 Sat by Pulse 100 Oximetry General appearance: Present: no acute distress, well-nourished - EENT Eyes: PERRL, EOM intact ENT: hearing intact, clear oral mucosa Ears: bilateral: normal - Neck Neck: supple, normal ROM - Respiratory Respiratory effort: normal Respiratory: bilateral: CTA - Breasts Breasts: normal - Cardiovascular Heart rate: 78 Rhythm: regular Heart Sounds: Present: S1 & S2. Absent: gallop, rub Extremities: pulses intact, No edema, normal color, Full ROM - Gastrointestinal General gastrointestinal: Present: soft, non-tender, non-distended, normal bowel sounds - Genitourinary Female genitourinary: normal - Integumentary Integumentary: clear, warm, dry - Musculoskeletal Musculoskeletal: 1, strength equal bilaterally - Neurologic Neurologic: moves all extremities - Psychiatric Psychiatric: memory intact, appropriate mood/affect, intact judgment & insight - Labs CBC & Chem 7: 12/04/19 05:08 12/02/19 05:27 Labs: Abnormal lab results 12/01/19 12/02/19 12/02/19 Range/Units 23:15 00:23 05:27 WBC 11.2 H (4.5-11.0) K/mm3 RBC 2.80 L (3.65-5.03) M/mm3 Hgb 7.5 L 7.4 L (10.1-14.3) gm/dl Hct 22.8 L 22.7 L (30.3-42.9) % MCH 26 L (28-32) pg RDW 17.5 H (13.2-15.2) % [place] % (Auto) 7.8 H (0.0-7.3) % [place] # 0.9 H (0.0-0.8) K/mm3 Sodium (137-145) mmol/L Chloride (98-107) mmol/L Carbon Dioxide (22-30) mmol/L BUN (7-17) mg/dL Creatinine (0.7-1.2) mg/dL Glucose (65-100) mg/dL POC Glucose 139 H (70-105) Hemoglobin A1c (4-6) % Total Protein (6.3-8.2) g/dL Albumin (3.9-5) g/dL 12/02/19 12/02/19 12/02/19 Range/Units 05:27 05:27 05:36 WBC (4.5-11.0) K/mm3 RBC (3.65-5.03) M/mm3 Hgb (10.1-14.3) gm/dl Hct (30.3-42.9) % MCH (28-32) pg RDW (13.2-15.2) % [place] % (Auto) (0.0-7.3) % [place] # (0.0-0.8) K/mm3 Sodium 147 H (137-145) mmol/L Chloride 113.7 H (98-107) mmol/L Carbon Dioxide 21 L (22-30) mmol/L BUN 28 H (7-17) mg/dL Creatinine 1.4 H (0.7-1.2) mg/dL Glucose 127 H (65-100) mg/dL POC Glucose 135 H (70-105) Hemoglobin A1c 6.5 H (4-6) % Total Protein 5.3 L (6.3-8.2) g/dL Albumin 3.1 L (3.9-5) g/dL 12/02/19 12/02/19 12/02/19 Range/Units 11:35 13:08 16:25 WBC (4.5-11.0) K/mm3 RBC (3.65-5.03) M/mm3 Hgb 7.4 L (10.1-14.3) gm/dl Hct 23.0 L (30.3-42.9) % MCH (28-32) pg RDW (13.2-15.2) % [place] % (Auto) (0.0-7.3) % [place] # (0.0-0.8) K/mm3 Sodium (137-145) mmol/L Chloride (98-107) mmol/L Carbon Dioxide (22-30) mmol/L BUN (7-17) mg/dL Creatinine (0.7-1.2) mg/dL Glucose (65-100) mg/dL POC Glucose 158 H 173 H (70-105) Hemoglobin A1c (4-6) % Total Protein (6.3-8.2) g/dL Albumin (3.9-5) g/dL
[2019-12-03] MEDS: INSULIN LISPRO 100 UNIT/ML SUB-Q SCH ×4 (00:16→23:23)
[2019-12-03] MEDS: hydrALAZINE 20 MG/1 ML INJ IV PRN (04:11)
[2019-12-03] MEDS: SODIUM CHLORIDE 0.9% 1000 ML 1,000 ML IV SCH (05:56)
[2019-12-03] MEDS: amLODIPine 10 MG TAB PO SCH (10:27)
[2019-12-03] MEDS: DOXAZOSIN 4 MG TAB PO SCH (10:27)
[2019-12-03] MEDS ORDERED: cloNIDine TTS 0.2 MG/24 HR PATCH TD SCH ×2 (14:38→19:00)
--- NOTE | 2019-12-03 14:41 | Progress Note ---
Assessment and Plan - Patient Problems (1) GI bleed Current Visit: Yes Status: Acute Plan to address problem: HAS PUID Cont PPI's (2) Acute anemia Current Visit: Yes Status: Acute Plan to address problem: Transfuse pRBC (3) HTN (hypertension) Current Visit: Yes Status: Chronic Qualifiers: Hypertension type: essential hypertension Qualified Code(s): I10 - Essential (primary) hypertension Plan to address problem: Cont antihypertensives (4) DVT prophylaxis Current Visit: Yes Status: Acute Plan to address problem: On SCD's (5) Discharge planning issues Current Visit: Yes Status: Acute Plan to address problem: Can be d/c'd tomorrow if no further bleeding Subjective Date of service: 12/03/19 Principal diagnosis: GI bleed Interval history: No further bleeding. Objective - Constitutional Vitals: Vital Signs - 12hr 12/03/19 12/03/19 12/03/19 04:11 04:32 08:33 Temperature 98.1 F 99.1 F Pulse Rate 124 H 124 H Respiratory 18 18 Rate Blood Pressure 195/85 195/85 190/87 O2 Sat by Pulse 95 Oximetry 12/03/19 12/03/19 11:37 11:41 Temperature Pulse Rate 118 H Respiratory Rate Blood Pressure O2 Sat by Pulse 97 Oximetry General appearance: Present: no acute distress, well-nourished - EENT Eyes: PERRL, EOM intact ENT: hearing intact, clear oral mucosa Ears: bilateral: normal - Neck Neck: supple, normal ROM - Respiratory Respiratory effort: normal Respiratory: bilateral: CTA - Breasts Breasts: normal - Cardiovascular Rhythm: regular Heart Sounds: Present: S1 & S2. Absent: gallop, rub Extremities: pulses intact, No edema, normal color, Full ROM - Gastrointestinal General gastrointestinal: Present: soft, non-tender, non-distended, normal bowel sounds - Genitourinary Female genitourinary: normal - Integumentary Integumentary: clear, warm, dry - Musculoskeletal Musculoskeletal: 1, strength equal bilaterally - Neurologic Neurologic: moves all extremities - Psychiatric Psychiatric: memory intact, appropriate mood/affect, intact judgment & insight - Labs CBC & Chem 7: 12/04/19 05:08 12/02/19 05:27 Labs: Abnormal lab results 12/02/19 12/03/19 12/03/19 Range/Units 16:25 00:25 05:54 POC Glucose 173 H 137 H 198 H (70-105) 12/03/19 Range/Units 12:36 POC Glucose 160 H (70-105)
--- NOTE | 2019-12-03 15:06 | Gastroenterology Progress Note ---
Assessment and Plan GI: pt presents w/ signs UGI bleed w/ EGD showing PUD - PPI qd - avoid nsaids/asa x 5 days - if h/h stable today ok to d/c from GI standpoint - follow up clinic 2-3 wks - will sign off, call if situation changes Subjective Date of service: 12/03/19 Interval history: -no signs bleeding overnight. Denies GI complaints Objective - Constitutional Vitals: Temp Pulse Resp BP Pulse Ox 99.1 F 118 H 18 190/87 97 12/03/19 08:33 12/03/19 11:41 12/03/19 08:33 12/03/19 08:33 12/03/19 11:37 General appearance: no acute distress - EENT Eyes: PERRL - Respiratory Respiratory: bilateral: CTA - Cardiovascular Rhythm: regular Heart Sounds: Present: S1 & S2 - Gastrointestinal General gastrointestinal: Present: soft, non-tender, non-distended - Labs CBC & Chem 7: 12/02/19 13:08 12/02/19 05:27 Labs: Laboratory Results - last 24 hr 12/02/19 12/03/19 12/03/19 16:25 00:25 05:54 POC Glucose 173 H 137 H 198 H 12/03/19 12:36 POC Glucose 160 H
[2019-12-03] MEDS ORDERED: METOPROLOL TARTRATE 25 MG TAB PO ONE ×2 (23:00→23:10)
[2019-12-04] MEDS: PANTOPRAZOLE 80 MG in SODIUM CHLORIDE 0.9% 100 ML IV SCH ×2 (02:10→10:38)
[2019-12-04 05:53] LABS: Hematocrit 20.5 % (30.3-42.9); Hemoglobin 6.8 gm/dl (10.1-14.3)
[2019-12-04] MEDS: INSULIN LISPRO 100 UNIT/ML SUB-Q SCH ×4 (07:30→18:31)
[2019-12-04] MEDS ORDERED: SODIUM CHLORIDE 0.9% 500 ML 500 ML IV ONE ×2 (08:46→09:28)
[2019-12-04] MEDS: DOXAZOSIN 4 MG TAB PO SCH (09:05)
[2019-12-04] MEDS: amLODIPine 10 MG TAB PO SCH (09:05)
[2019-12-04] MEDS ORDERED: HYDROcodone/ACETAMINOPHEN 7.5-325MG TAB PO PRN (11:01)
[2019-12-04] MEDS ORDERED: NIFEdipine XL 30 MG TAB PO SCH (14:01)
[2019-12-04] MEDS ORDERED: SODIUM CHLORIDE 0.9% 500 ML 500 ML ONE (14:22)
[2019-12-04] MEDS: SODIUM CHLORIDE 0.9% 1000 ML 1,000 ML IV SCH (14:56)
--- NOTE | 2019-12-04 19:29 | Progress Note ---
Assessment and Plan Assessment and plan: Patient is a 79-year-old -[place] female here today with complaints of acute onset of coffee-ground emesis in melena on the morning of admission . Patient currently on Plavix. History of CAD and recent stent placement in left subclavian artery. 11/15/19 hemoglobin = 12, hemoglobin today = 7.1. Blood pressure is elevated, however it is stable. Patient tachy in the 120s. CT abdomen shows possible colitis. Discussed patient with Dr. Plummer. Patiently currently on Protonix drip, two 1 liter boluses given, 1 unit of blood ordered. GI was consulted, Dr. Lorenzo to see patient and have an EGD in the morning. Patient to be admitted to the hospital. * Plan was to discharge the patient today but hemoglobin was 6.8 patient is being transfused additional unit. * Also the patient had persistently elevated blood pressure in the 190s. Ideally blood pressure should be down to at least below 160. New medications have been added and will monitor the patient's 1 additional day to ensure better control of blood pressure. New medications included includes discontinuation of Norvasc and starting the patient on nifedipine also patient started on labetalol. Add metoprolol discontinued. * While patient is here we will also consult with vascular surgeon as patient will need to be aspirin and possible Plavix for the next 5 days to ensure no compromise to the stents that they placed recently * Plan discussed with the patient and family. (1) GI bleed w/ signs UGI bleed w/ EGD showing PUD Current Visit: Yes Status: Acute Plan to address problem: HAS PUID Cont PPI's CHANGE TO PO GIVE ADDITIONAL UNIT OF BLOOD TODAY DUE TO HGB DOWN TO 6.8 (2) Acute anemia Current Visit: Yes Status: Acute Plan to address problem: Transfuse pRBC (3) HTN (hypertension) UNCONTROLLED Current Visit: Yes Status: Chronic Qualifiers: Hypertension type: essential hypertension Qualified Code(s): I10 - Essential (primary) hypertension Plan to address problem: Cont antihypertensives (4) DVT prophylaxis Current Visit: Yes Status: Acute Plan to address problem: On SCD's (5) Discharge planning issues Current Visit: Yes Status: Acute Plan to address problem: Can be d/c'd tomorrow if no further bleeding History Interval history: Patient seen and examined daughter at bedside no further bleeding noted. Pa tient reports no bowel movement since admission. Hospitalist Physical - Physical exam Narrative exam: VITAL SIGNS: Reviewed. GENERAL: The patient appears normally developed, chronically ill-appearing, Vital signs as documented. HEAD: No signs of head trauma. EYES: Pupils are equal. Extraocular motions intact. EARS: Hearing grossly intact. MOUTH: Oropharynx is normal. NECK: No adenopathy, no JVD. CHEST: Chest with clear breath sounds bilaterally. No wheezes, rales, or rhonchi. CARDIAC: Regular rate and rhythm. S1 and S2, without murmurs, gallops, or rubs. VASCULAR: No Edema. Peripheral pulses normal and equal in all extremities. ABDOMEN: Soft, non tender and non distended. No rebound or guarding, and no masses palpated. Bowel Sounds normal. MUSCULOSKELETAL: Good range of motion of all major joints. Extremities without clubbing, cyanosis or edema. NEUROLOGIC EXAM: Alert and oriented x 3 No focal sensory or strength deficits. Speech normal. Follows commands. PSYCHIATRIC: Mood normal. SKIN: detial exam as documented in skin assessment - Constitutional Vitals: Temp Pulse Resp BP Pulse Ox 98.8 F 119 H 18 168/94 100 12/04/19 15:10 12/04/19 16:55 12/04/19 15:10 12/04/19 17:48 12/04/19 08:48 General appearance: Present: no acute distress, well-nourished Results - Labs CBC & Chem 7: 12/04/19 05:08 12/02/19 05:27 Labs: Laboratory Last Values WBC 11.2 K/mm3 (4.5-11.0) H 12/02/19 05:27 RBC 2.80 M/mm3 (3.65-5.03) L 12/02/19 05:27 Hgb 6.8 gm/dl (10.1-14.3) L 12/04/19 05:08 Hct 20.5 % (30.3-42.9) L 12/04/19 05:08 MCV 81 fl (79-97) 12/02/19 05:27 MCH 26 pg (28-32) L 12/02/19 05:27 MCHC 33 % (30-34) 12/02/19 05:27 RDW 17.5 % (13.2-15.2) H 12/02/19 05:27 Plt Count 246 K/mm3 (140-440) 12/02/19 05:27 Lymph % (Auto) 23.8 % (13.4-35.0) 12/02/19 05:27 [place] % (Auto) 7.8 % (0.0-7.3) H 12/02/19 05:27 Eos % (Auto) 1.9 % (0.0-4.3) 12/02/19 05:27 Baso % (Auto) 0.5 % (0.0-1.8) 12/02/19 05:27 Lymph # 2.7 K/mm3 (1.2-5.4) 12/02/19 05:27 [place] # 0.9 K/mm3 (0.0-0.8) H 12/02/19 05:27 Eos # 0.2 K/mm3 (0.0-0.4) 12/02/19 05:27 Baso # 0.1 K/mm3 (0.0-0.1) 12/02/19 05:27 Seg Neutrophils % 66.0 % (40.0-70.0) 12/02/19 05:27 Seg Neutrophils # 7.4 K/mm3 (1.8-7.7) 12/02/19 05:27 PT 14.7 Sec. (12.2-14.9) 12/01/19 13:21 INR 1.13 (0.87-1.13) 12/01/19 13:21 APTT 24.0 Sec. (24.2-36.6) L 12/01/19 13:21 Sodium 147 mmol/L (137-145) H 12/02/19 05:27 Potassium 3.9 mmol/L (3.6-5.0) 12/02/19 05:27 Chloride 113.7 mmol/L (98-107) H 12/02/19 05:27 Carbon Dioxide 21 mmol/L (22-30) L 12/02/19 05:27 Anion Gap 16 mmol/L 12/02/19 05:27 BUN 28 mg/dL (7-17) H 12/02/19 05:27 Creatinine 1.4 mg/dL (0.7-1.2) H 12/02/19 05:27 Estimated GFR 44 ml/min 12/02/19 05:27 BUN/Creatinine Ratio 20 % 12/02/19 05:27 Glucose 127 mg/dL (65-100) H 12/02/19 05:27 POC Glucose 173 (70-105) H 12/04/19 17:25 Hemoglobin A1c 6.5 % (4-6) H 12/02/19 05:27 Lactic Acid 1.90 mmol/L (0.7-2.0) 12/01/19 15:15 Calcium 8.5 mg/dL (8.4-10.2) 12/02/19 05:27 Total Bilirubin 0.20 mg/dL (0.1-1.2) 12/02/19 05:27 AST 13 units/L (5-40) 12/02/19 05:27 ALT 7 units/L (7-56) 12/02/19 05:27 Alkaline Phosphatase 89 units/L (35-129) 12/02/19 05:27 Troponin T < 0.010 ng/mL (0.00-0.029) 12/01/19 15:15 Total Protein 5.3 g/dL (6.3-8.2) L 12/02/19 05:27 Albumin 3.1 g/dL (3.9-5) L 12/02/19 05:27 Albumin/Globulin Ratio 1.4 % 12/02/19 05:27 Lipase 37 units/L (13-60) 12/01/19 13:21 Urine Color Yellow (Yellow) 12/01/19 15:40 Urine Turbidity Clear (Clear) 12/01/19 15:40 Urine pH 5.0 (5.0-7.0) 12/01/19 15:40 Ur Specific [place] 1.018 (1.003-1.030) 12/01/19 15:40 Urine Protein <15 mg/dl mg/dL (Negative) 12/01/19 15:40 Urine Glucose (UA) 50 mg/dL (Negative) 12/01/19 15:40 Urine Ketones Neg mg/dL (Negative) 12/01/19 15:40 Urine Blood Lg (Negative) 12/01/19 15:40 Urine Nitrite Neg (Negative) 12/01/19 15:40 Urine Bilirubin Neg (Negative) 12/01/19 15:40 Urine Urobilinogen < 2.0 mg/dL (<2.0) 12/01/19 15:40 Ur Leukocyte Esterase Lg (Negative) 12/01/19 15:40 Urine WBC (Auto) 6.0 /HPF (0.0-6.0) 12/01/19 15:40 Urine RBC (Auto) 5.0 /HPF (0.0-6.0) 12/01/19 15:40 U Epithel Cells (Auto) 5.0 /HPF (0-13.0) 12/01/19 15:40 Urine Bacteria (Auto) 1+ /HPF (Negative) 12/01/19 15:40 Urine Mucus Few /HPF 12/01/19 15:40 Blood Type O POSITIVE 12/04/19 10:52 Antibody Screen Negative 12/04/19 10:52 Crossmatch See Detail 12/04/19 10:52 Active Medications - Current Medications Current Medications: Generic Name Dose Route Start Last Admin Trade Name Freq PRN Reason Stop Dose Admin Acetaminophen 650 mg 12/01/19 21:36 Tylenol PO Q4H PRN Pain MILD(1-3)/Fever >100.5/DRISCOLL Acetaminophen/Hydrocodone Bitart 1 each 12/04/19 11:01 [place] 7.5/325 PO Q6HR PRN PAIN (4-6) Atorvastatin Calcium 40 mg 12/04/19 22:00 Lipitor PO QHS ALYSSA Doxazosin Mesylate 4 mg 12/05/19 10:00 Cardura PO DAILY ALYSSA Hydralazine HCl 10 mg 12/02/19 02:02 12/03/19 04:11 Apresoline IV 10 mg Q6HR PRN Administration Blood Pressure Hydromorphone HCl 0.5 mg 12/01/19 21:36 Dilaudid IV Q3H PRN Pain , Severe (7-10) Pantoprazole Sodium 80 mg/ 100 mls @ 10 mls/hr 12/01/19 18:00 12/04/19 10:38 Sodium Chloride IV 8 mg/hr DIRECT ALYSSA 10 mls/hr Administration 8 MG/HR Sodium Chloride 1,000 mls @ 42 mls/hr 12/01/19 21:45 12/04/19 14:56 Nacl 0.9% 1000 Ml IV 75 mls/hr DIRECT ALYSSA Administration Insulin Human Lispro 0 unit 12/02/19 00:00 02/17/20 18:31 Humalog SUB-Q 2 unit Q6HR ALYSSA Administration Protocol Labetalol HCl 100 mg 12/04/19 17:00 12/04/19 16:54 Labetalol PO 100 mg Q8HR ALYSSA Administration Labetalol HCl 10 mg 12/04/19 16:11 12/04/19 16:55 Labetalol IV 10 mg Q6HR PRN Administration HYPERTENSION Morphine Sulfate 2 mg 12/01/19 21:36 12/02/19 17:57 Morphine IV 2 mg Q4H PRN Administration Pain, Moderate (4-6) Nifedipine 60 mg 12/04/19 16:10 Procardia Xl PO Q12HR ALYSSA Ondansetron HCl 4 mg 12/01/19 21:36 12/02/19 17:58 Zofran IV 4 mg Q8H PRN Administration Nausea And Vomiting Potassium Chloride 8 meq 12/05/19 10:00 Klor-Con 8 PO QDAY ALYSSA Sodium Chloride 10 ml 12/01/19 22:00 12/04/19 09:05 Sodium Chloride Flush Syringe 10 Ml IV 10 ml BID ALYSSA Administration Sodium Chloride 10 ml 12/01/19 21:36 Sodium Chloride Flush Syringe 10 Ml IV PRN PRN LINE FLUSH Nutrition/Malnutrition Assess - Dietary Evaluation Nutrition/Malnutrition Findings: Nutrition Notes Start: 12/03/19 12:15 Freq: Status: Active Protocol: Document 12/03/19 12:15 BARRETT (Rec: 12/03/19 12:29 [id number]) Nutrition Notes Need for Assessment generated from: MD Order Initial or Follow up Brief Note Current Diagnosis Diabetes,Hypertension, Hyperlipidemia Current Diet Mechanical soft Subjective/Other Information Pt screened for new onset DM. Pt satted she was dx with DM over 5 years ago. She does not check her blood sugar at home . RD provided education CHO servings, meal planning, and label reading. Pt asked if she can still drink soda sometimes. RD encouraged pt to drink small 8oz cans and to remember to count them as CHO servings. Minimum of two criteria No physical signs of malnutrition #1 Nutrition Diagnosis Limited adherence to nutrition -related recommendations Etiology Pt Recieved consistent CHO education before As Evidenced by Signs and Symptoms Pt stated she had recieved education on consistent CHO diet before, but did not remember much of it Nutrition Intervention Change Diet Order: mechanical soft with consistwnt CHO modification Teaching Recipient Patient Learning Readiness Good Teaching Methods Discussion,Handout Education Handouts Provided Carbohydrate Counting for People With Diabetes, Using the Food Label: Carbohydrates Anticipated Discharge Needs: Conssitent CHO diet Revisit per MD consult or patient Sign Off request:
[2019-12-04] MEDS: DOCUSATE SODIUM 100 MG CAP PO SCH (21:54)
[2019-12-04] MEDS: NIFEdipine XL 30 MG TAB PO SCH (21:55)
[2019-12-05] MEDS: INSULIN LISPRO 100 UNIT/ML SUB-Q SCH ×4 (00:24→17:35)
[2019-12-05 05:28] LABS: Hematocrit 21.2 % (30.3-42.9); Hemoglobin 7.4 gm/dl (10.1-14.3); Mean Corpuscular HGB Conc 35 % (30-34); Mean Corpuscular Volume 80 fl (79-97); Platelet Count 256 K/mm3 (140-440); Red Blood Count 2.64 M/mm3 (3.65-5.03); Red Cell Distribution Width 17.3 % (13.2-15.2)
[2019-12-05 05:48] LABS: Calcium 8.4 mg/dL (8.4-10.2)
--- NOTE | 2019-12-05 09:52 | Discharge Summary ---
Providers - Providers Date of Admission: 12/01/19 17:14 Attending physician: TIMOTHY ARANA MD 12/01/19 17:07 Consult to Physician [CONS] Urgent Comment: Dr. Plummer spoke with Dr. Lorenzo @ [id number] Consulting Provider: JHONNY LORENZO Physician Instructions: Reason For Exam: rectal bleed, decreased hgb 12/04/19 13:46 Physical Therapy Evaluation and Treat [CONS] Routine Comment: Reason For Exam: Generalized weakness 12/04/19 19:30 Consult to Physician [CONS] Routine Comment: Consulting Provider: MONA LEDEZMA Physician Instructions: Reason For Exam: PAD RECENT STENT Primary care physician: PEDIATRIC NEUROLOGIST Hospitalization Reason for admission: GI bleed Condition: Stable Hospital course: Patient is a 79-year-old -Bangl[place] female here today with complaints of acute onset of coffee-ground emesis in melena on the morning of admission . Patient currently on Plavix. History of CAD and recent stent placement in left subclavian artery. 11/15/19 hemoglobin = 12, hemoglobin today = 7.1. Blood pressure is elevated, however it is stable. Patient tachy in the 120s. CT abdomen shows possible colitis. Discussed patient with Dr. Plummer. Patiently currently on Protonix drip, two 1 liter boluses given, 1 unit of blood ordered. GI was consulted, Dr. Lorenzo to see patient and have an EGD in the morning. Patient to be admitted to the hospital. Ms. Darden on admission was given 1 unit packed red blood cell and underwent endoscopy which showed peptic ulcer disease patient was biopsies were taken and later came back positive for H. pylori after the patient had been discharged. Medications were ordered appropriately for the patient Initially the patient was planned for discharge on 12/04 but due to her vascular history he needed to ensure that hemoglobin was stable to at least start aspirin back this was not seen and patient required a transfusion as hemoglobin was 6.8. On 12/05 patient again was attempted to be discharged but blood pressure was elevated patient was also constipated and abdominal pain and very deconditioned with tachycardia on attempt to ambulate. Medications adjustments were made and the patient improved * Plan was to discharge the patient today but hemoglobin was 6.8 patient is being transfused additional unit. * Also the patient had persistently elevated blood pressure in the 190s. Ideally blood pressure should be down to at least below 160. New medications have been added and will monitor the patient's 1 additional day to ensure better control of blood pressure. New medications included includes discontinuation of Norvasc and starting the patient on nifedipine also patient started on labetalol. Add metoprolol discontinued. * While patient is here we will also consult with vascular surgeon as patient will need to be aspirin and possible Plavix for the next 5 days to ensure no compromise to the stents that they placed recently * Plan discussed with the patient and family. * Deconditioning, will need PT/OT at home * Ekg was sinus tachycardia (1) GI bleed. Hyplori (2) Acute anemia (3) HTN (hypertension) UNCONTROLLED (4) severe constipation (5) DHAVAL secondary to vasomotor nephropathy Disposition: [id number]-06 HOME UNDER HOME HLTH Time spent for discharge: 35 mins Core Measure Documentation - Palliative Care Palliative Care/ Comfort Measures: Not Applicable - Core Measures Any of the following diagnoses?: none Exam - Physical Exam Narrative exam: VITAL SIGNS: Reviewed. GENERAL: The patient appears normally developed, chronically ill-appearing, Vital signs as documented. HEAD: No signs of head trauma. EYES: Pupils are equal. Extraocular motions intact. EARS: Hearing grossly intact. MOUTH: Oropharynx is normal. NECK: No adenopathy, no JVD. CHEST: Chest with clear breath sounds bilaterally. No wheezes, rales, or rhonchi. CARDIAC: Tachycardic with regular . S1 and S2, without murmurs, gallops, or rubs. VASCULAR: No Edema. Peripheral pulses normal and equal in all extremities. ABDOMEN: Soft, non tender and non distended. No rebound or guarding, and no masses palpated. Bowel Sounds normal. MUSCULOSKELETAL: Good range of motion of all major joints. Extremities without clubbing, cyanosis or edema. NEUROLOGIC EXAM: Awake but lethargic and oriented x 3 No focal sensory or strength deficits. Speech normal. Follows commands. PSYCHIATRIC: Mood normal. SKIN: detail exam as documented in skin assessment - Constitutional Vitals: Temp Pulse Resp BP Pulse Ox 100.2 F H 96 H 18 137/62 96 12/05/19 07:18 12/05/19 07:18 12/05/19 07:18 12/05/19 07:18 12/05/19 07:18 Plan Activity: advance as tolerated, fall precautions Diet: low fat, low salt Special Instructions: record daily weights, record daily BP diary, physical therapy, occupational therapy Additional Instructions: Please see changes on BP meds. Patient can resume ASA but hold plavix for 5 days and restart Follow up with: PRIMARY CARE, [Primary Care Provider] - 3-5 Days JHONNY LORENZO MD [Staff Physician] - 7 Days Prescriptions: Amoxicillin/K Clav Tab [Augmentin 500 MG TAB] 2 each PO Q12HR #48 tablet Clarithromycin 500 mg PO BID #28 tablet Docusate Sodium [Colace] 100 mg PO BID PRN #30 capsule PRN Reason: Constipation metroNIDAZOLE [Flagyl TAB] 500 mg PO Q12HR #28 tab labetaloL [Labetalol 100mg TAB] 100 mg PO Q8HR #90 tablet NIFEdipine XL [Procardia Xl] 60 mg PO Q12HR #60 tablet Pantoprazole [Protonix TAB] 40 mg PO BID #60 tablet
[2019-12-05] MEDS ORDERED: amLODIPine 5 MG TAB PO SCH (10:00)
[2019-12-05] MEDS: NIFEdipine XL 30 MG TAB PO SCH ×2 (10:57→22:54)
[2019-12-05] MEDS: PANTOPRAZOLE 40 MG TAB PO SCH (10:57)
[2019-12-05] MEDS: DOCUSATE SODIUM 100 MG CAP PO SCH ×2 (10:57→22:55)
[2019-12-05] MEDS: DOXAZOSIN 4 MG TAB PO SCH (10:58)
[2019-12-05] MEDS: POTASSIUM CHLORIDE ER 8 MEQ TAB PO SCH (10:58)
[2019-12-05] MEDS ORDERED: MAGNESIUM HYDROXIDE (MOM) ORAL LIQD UDC PO PRN (12:00)
[2019-12-05] MEDS ORDERED: MAGNESIUM CITRATE 300 ML ORAL LIQD PO ONE (15:47)
--- NOTE | 2019-12-05 16:45 | Consultation ---
History of Present Illness - Reason for Consult Consult date: 12/05/19 LUE stenting with GI bleed - History of Present Illness Patient is a 79-year-old -E[place]ian female here today with complaints of acute onset of coffee-ground emesis in melena on the morning of admission . Patient currently on Plavix. History of CAD and recent stent placement in left subclavian artery. 11/15/19 hemoglobin = 12, hemoglobin today = 7.1. Blood pressure is elevated, however it is stable. Patient tachy in the 120s. CT abdomen shows possible colitis. Discussed patient with Dr. Plummer. Patiently curr ently on Protonix drip, two 1 liter boluses given, 1 unit of blood ordered. GI was consulted, Dr. Lorenzo to see patient and have an EGD in the morning. Patient to be admitted to the hospital. Upon evaluation of the patient's left upper extremity, there is a palpable left radial and ulnar pulse with reperfusion warmth of the left upper extremity with no evidence of ischemia. Patient denies melena or hematochezia or emesis in the last 48 hours. Past History Past Medical History: PVD Past Surgical History: Other (Recent left upper extremity endovascular revascularization) Medications and Allergies Allergies Allergy/AdvReac Type Severity Reaction Status Date / Time Tetracyclines Allergy Unknown Verified 10/25/13 13:31 Home Medications Medication Instructions Recorded Confirmed Last Taken Type Glimepiride [Amaryl] 2 mg PO QAM 05/07/16 12/03/19 11/14/19 History 2 mg Atorvastatin [Lipitor] 40 mg PO QHS #30 tab 05/08/16 12/03/19 11/15/19 Rx 40 mg Potassium Chloride [Klor-Con 8] 8 meq PO QDAY #30 tablet 05/08/16 12/03/19 0 11/15/19 Rx 8 meq Aspirin [Adult Aspirin] 81 mg PO DAILY 11/15/19 12/03/19 11/15/19 History 81 mg Clopidogrel [Plavix] 75 mg PO DAILY 11/15/19 12/03/19 11/15/19 History 75 mg Doxazosin [Cardura] 4 mg PO DAILY 11/15/19 12/03/19 11/15/19 History 4 mg HYDROcodone/APAP 7.5-325 [[place] 1 each PO Q6HR PRN #30 tablet 11/15/19 12/03/19 Unknown Rx 7.5-325 mg TAB] Docusate Sodium [Colace] 100 mg PO BID PRN #30 capsule 12/05/19 Unknown Rx NIFEdipine XL [Procardia Xl] 60 mg PO Q12HR #60 tablet 12/05/19 Unknown Rx Pantoprazole [Protonix TAB] 40 mg PO QDAY #30 tablet 12/05/19 Unknown Rx labetaloL [Labetalol 100mg TAB] 100 mg PO Q8HR #90 tablet 12/05/19 Unknown Rx Active Meds: Active Medications Acetaminophen (Tylenol) 650 mg PO Q4H PRN PRN Reason: Pain MILD(1-3)/Fever >100.5/DRISCOLL Acetaminophen/Hydrocodone Bitart ([place] 7.5/325) 1 each PO Q6HR PRN PRN Reason: PAIN (4-6) Atorvastatin Calcium (Lipitor) 40 mg PO QHS [facility] Last Admin: 12/04/19 21:54 Dose: 40 mg Documented by: Docusate Sodium (Colace) 100 mg PO BID [facility] Last Admin: 12/05/19 10:57 Dose: 100 mg Documented by: Doxazosin Mesylate (Cardura) 4 mg PO DAILY [facility] Last Admin: 12/05/19 10:58 Dose: 4 mg Documented by: Hydralazine HCl (Apresoline) 10 mg IV Q6HR PRN PRN Reason: Blood Pressure Last Admin: 12/03/19 04:11 Dose: 10 mg Documented by: Sodium Chloride (Nacl 0.9% 1000 Ml) 1,000 mls @ 42 mls/hr IV DIRECT [facility] Last Admin: 12/04/19 14:56 Dose: 75 mls/hr Documented by: Insulin Human Lispro (Humalog) 0 unit SUB-Q Q6HR [facility]; Protocol Last Admin: 12/05/19 12:41 Dose: 3 unit Documented by: Labetalol HCl (Labetalol) 100 mg PO Q8HR [facility] Last Admin: 12/05/19 14:03 Dose: 100 mg Documented by: Labetalol HCl (Labetalol) 10 mg IV Q6HR PRN PRN Reason: HYPERTENSION Last Admin: 12/04/19 16:55 Dose: 10 mg Documented by: Magnesium Hydroxide (Milk Of Magnesia) 30 ml PO Q4H PRN PRN Reason: Constipation Last Admin: 12/05/19 12:32 Dose: 30 ml Documented by: Morphine Sulfate (Morphine) 2 mg IV Q4H PRN PRN Reason: Pain, Moderate (4-6) Last Admin: 12/02/19 17:57 Dose: 2 mg Documented by: Nifedipine (Procardia Xl) 60 mg PO Q12HR [facility] Last Admin: 12/05/19 10:57 Dose: 60 mg Documented by: Ondansetron HCl (Zofran) 4 mg IV Q8H PRN PRN Reason: Nausea And Vomiting Last Admin: 12/02/19 17:58 Dose: 4 mg Documented by: Pantoprazole Sodium (Protonix) 40 mg PO QDAY [facility] Last Admin: 12/05/19 10:57 Dose: 40 mg Documented by: Potassium Chloride (Klor-Con 8) 8 meq PO QDAY [facility] Last Admin: 12/05/19 10:58 Dose: 8 meq Documented by: Sodium Chloride (Sodium Chloride Flush Syringe 10 Ml) 10 ml IV BID [facility] Last Admin: 12/05/19 10:59 Dose: 10 ml Documented by: Sodium Chloride (Sodium Chloride Flush Syringe 10 Ml) 10 ml IV PRN PRN PRN Reason: LINE FLUSH Review of Systems All systems: negative (see HPI) Exam - Constitutional Vitals: Temp Pulse Resp BP Pulse Ox 97.1 F L 112 H 18 137/56 97 12/05/19 16:11 12/05/19 16:11 12/05/19 16:11 12/05/19 14:03 12/05/19 16:11 General appearance: Present: no acute distress - EENT Eyes: Present: EOM intact ENT: hearing intact - Respiratory Respiratory effort: normal - Extremities Extremities: no ischemia (LUE), pulses intact (LUE), normal temperature, normal color - Psychiatric Psychiatric: appropriate mood/affect, cooperative Results - Labs CBC & Chem 7: 12/05/19 04:57 12/05/19 04:57 Labs: Abnormal lab results 12/04/19 12/04/19 12/05/19 Range/Units 10:52 17:25 00:38 RBC (3.65-5.03) M/mm3 Hgb (10.1-14.3) gm/dl Hct (30.3-42.9) % MCHC (30-34) % RDW (13.2-15.2) % Potassium (3.6-5.0) mmol/L Carbon Dioxide (22-30) mmol/L Creatinine (0.7-1.2) mg/dL Glucose (65-100) mg/dL POC Glucose 173 H 147 H (70-105) Total Protein (6.3-8.2) g/dL Albumin (3.9-5) g/dL Crossmatch See Detail 12/05/19 12/05/19 12/05/19 Range/Units 04:57 04:57 08:40 RBC 2.64 L (3.65-5.03) M/mm3 Hgb 7.4 L (10.1-14.3) gm/dl Hct 21.2 L (30.3-42.9) % MCHC 35 H (30-34) % RDW 17.3 H (13.2-15.2) % Potassium 3.3 L (3.6-5.0) mmol/L Carbon Dioxide 19 L (22-30) mmol/L Creatinine 1.4 H (0.7-1.2) mg/dL Glucose 147 H (65-100) mg/dL POC Glucose 187 H (70-105) Total Protein 6.1 L (6.3-8.2) g/dL Albumin 3.0 L (3.9-5) g/dL Crossmatch 12/05/19 Range/Units 12:44 RBC (3.65-5.03) M/mm3 Hgb (10.1-14.3) gm/dl Hct (30.3-42.9) % MCHC (30-34) % RDW (13.2-15.2) % Potassium (3.6-5.0) mmol/L Carbon Dioxide (22-30) mmol/L Creatinine (0.7-1.2) mg/dL Glucose (65-100) mg/dL POC Glucose 204 H (70-105) Total Protein (6.3-8.2) g/dL Albumin (3.9-5) g/dL Crossmatch Assessment and Plan 79-year-old female with upper GI bleed and recent endovascular revascularization of the axillary and subclavian artery with Viabond stent graft placement with no evidence of ischemia of the left upper extremity, reperfusion warmth, and palpable pulses. Given recent implantation, holding all antiplatelet therapy places patient at high risk for stent occlusion and thrombosis with acute limb ischemia. I discussed the situation with GI and hospitalist service, and discussed risks and benefits. If possible, hopefully can initiate baby aspirin today, and in 5 days Plavix. Follow-up with Dr. Lopez as outpatient.
[2019-12-05] MEDS: ASPIRIN EC 81 MG TAB PO SCH (17:35)
--- NOTE | 2019-12-05 17:47 | Progress Note ---
Assessment and Plan Assessment and plan: Patient is a 79-year-old -Faroese female here today with complaints of acute onset of coffee-ground emesis in melena on the morning of admission . Patient currently on Plavix. History of CAD and recent stent placement in left subclavian artery. 11/15/19 hemoglobin = 12, hemoglobin today = 7.1. Blood pressure is elevated, however it is stable. Patient tachy in the 120s. CT abdomen shows possible colitis. Discussed patient with Dr. Plummer. Patiently currently on Protonix drip, two 1 liter boluses given, 1 unit of blood ordered. GI was consulted, Dr. Lorenzo to see patient and have an EGD in the morning. Patient to be admitted to the hospital. * Plan was to discharge the patient today but hemoglobin was 6.8 patient is being transfused additional unit. * Also the patient had persistently elevated blood pressure in the 190s. Ideally blood pressure should be down to at least below 160. New medications have been added and will monitor the patient's 1 additional day to ensure better control of blood pressure. New medications included includes discontinuation of Norvasc and starting the patient on nifedipine also patient started on labetalol. Add metoprolol discontinued. * Discussed with vascular surgery and concern for recent stent of the left subclavian artery. Will start aspirin and hold Plavix for additional 5 days. * Plan discussed with the patient and family. * Patient continues to report abdominal discomfort very lethargic despite blood pressure being better controlled heart rate is still uncontrolled. * Due to abdominal discomfort and generalized weakness which persists will hold patient's discharge today we will repeat H&H in a.m.. Patient is still high risk for fall at home. Still with heart rate in the 110s. Will obtain an EKG. May need cardiology evaluation. (1) GI bleed w/ signs UGI bleed w/ EGD showing PUD Current Visit: Yes Status: Acute Plan to address problem: HAS PUID Cont PPI's CHANGE TO PO GIVE ADDITIONAL UNIT OF BLOOD TODAY DUE TO HGB DOWN TO 6.8 (2) Acute anemia Current Visit: Yes Status: Acute Plan to address problem: Transfuse pRBC (3) HTN (hypertension) UNCONTROLLED Current Visit: Yes Status: Chronic Qualifiers: Hypertension type: essential hypertension Qualified Code(s): I10 - Esse ntial (primary) hypertension Plan to address problem: Cont antihypertensives (4) Constipation -Trial of MOM and colace (5) Hypokalemia replace (6) DHAVAL secondary to vasomotor nephropathy Increase IV fluids rate DVT prophylaxis Current Visit: Yes Status: Acute Plan to address problem: On SCD's History Interval history: Patient seen and examined daughter at bedside no further bleeding noted. Reports no bowel movement in some abdominal discomfort of concern, still very lethargic today refusing her p.o. diet with sensation of nausea. Plan discharge canceled at this time. . Hospitalist Physical - Physical exam Narrative exam: VITAL SIGNS: Reviewed. GENERAL: The patient appears normally developed, chronically ill-appearing, Vital signs as documented. HEAD: No signs of head trauma. EYES: Pupils are equal. Extraocular motions intact. EARS: Hearing grossly intact. MOUTH: Oropharynx is normal. NECK: No adenopathy, no JVD. CHEST: Chest with clear breath sounds bilaterally. No wheezes, rales, or rhonchi. CARDIAC: Tachycardic with regular . S1 and S2, without murmurs, gallops, or rubs. VASCULAR: No Edema. Peripheral pulses normal and equal in all extremities. ABDOMEN: Soft, non tender and non distended. No rebound or guarding, and no masses palpated. Bowel Sounds normal. MUSCULOSKELETAL: Good range of motion of all major joints. Extremities without clubbing, cyanosis or edema. NEUROLOGIC EXAM: Awake but lethargic and oriented x 3 No focal sensory or strength deficits. Speech normal. Follows commands. PSYCHIATRIC: Mood normal. SKIN: detial exam as documented in skin assessment - Constitutional Vitals: Temp Pulse Resp BP Pulse Ox 97.1 F L 112 H 18 137/56 97 12/05/19 16:11 12/05/19 16:11 12/05/19 16:11 12/05/19 14:03 12/05/19 16:11 General appearance: Present: no acute distress Results - Labs CBC & Chem 7: 12/05/19 04:57 12/05/19 04:57 Labs: Laboratory Last Values WBC 10.7 K/mm3 (4.5-11.0) 12/05/19 04:57 RBC 2.64 M/mm3 (3.65-5.03) L 12/05/19 04:57 Hgb 7.4 gm/dl (10.1-14.3) L 12/05/19 04:57 Hct 21.2 % (30.3-42.9) L 12/05/19 04:57 MCV 80 fl (79-97) 12/05/19 04:57 MCH 28 pg (28-32) 12/05/19 04:57 MCHC 35 % (30-34) H 12/05/19 04:57 RDW 17.3 % (13.2-15.2) H 12/05/19 04:57 Plt Count 256 K/mm3 (140-440) 12/05/19 04:57 Lymph % (Auto) 23.8 % (13.4-35.0) 12/02/19 05:27 [place] % (Auto) 7.8 % (0.0-7.3) H 12/02/19 05:27 Eos % (Auto) 1.9 % (0.0-4.3) 12/02/19 05:27 Baso % (Auto) 0.5 % (0.0-1.8) 12/02/19 05:27 Lymph # 2.7 K/mm3 (1.2-5.4) 12/02/19 05:27 [place] # 0.9 K/mm3 (0.0-0.8) H 12/02/19 05:27 Eos # 0.2 K/mm3 (0.0-0.4) 12/02/19 05:27 Baso # 0.1 K/mm3 (0.0-0.1) 12/02/19 05:27 Seg Neutrophils % 66.0 % (40.0-70.0) 12/02/19 05:27 Seg Neutrophils # 7.4 K/mm3 (1.8-7.7) 12/02/19 05:27 PT 14.7 Sec. (12.2-14.9) 12/01/19 13:21 INR 1.13 (0.87-1.13) 12/01/19 13:21 APTT 24.0 Sec. (24.2-36.6) L 12/01/19 13:21 Sodium 139 mmol/L (137-145) D 12/05/19 04:57 Potassium 3.3 mmol/L (3.6-5.0) L 12/05/19 04:57 Chloride 104.7 mmol/L (98-107) 12/05/19 04:57 Carbon Dioxide 19 mmol/L (22-30) L 12/05/19 04:57 Anion Gap 19 mmol/L 12/05/19 04:57 BUN 14 mg/dL (7-17) 12/05/19 04:57 Creatinine 1.4 mg/dL (0.7-1.2) H 12/05/19 04:57 Estimated GFR 44 ml/min 12/05/19 04:57 BUN/Creatinine Ratio 10 % 12/05/19 04:57 Glucose 147 mg/dL (65-100) H 12/05/19 04:57 POC Glucose 120 (70-105) H 12/05/19 16:48 Hemoglobin A1c 6.5 % (4-6) H 12/02/19 05:27 Lactic Acid 1.90 mmol/L (0.7-2.0) 12/01/19 15:15 Calcium 8.4 mg/dL (8.4-10.2) 12/05/19 04:57 Total Bilirubin 0.40 mg/dL (0.1-1.2) 12/05/19 04:57 AST 13 units/L (5-40) 12/05/19 04:57 ALT 9 units/L (7-56) 12/05/19 04:57 Alkaline Phosphatase 78 units/L (35-129) 12/05/19 04:57 Troponin T < 0.010 ng/mL (0.00-0.029) 12/01/19 15:15 Total Protein 6.1 g/dL (6.3-8.2) L 12/05/19 04:57 Albumin 3.0 g/dL (3.9-5) L 12/05/19 04:57 Albumin/Globulin Ratio 1.0 % 12/05/19 04:57 Lipase 37 units/L (13-60) 12/01/19 13:21 Urine Color Yellow (Yellow) 12/01/19 15:40 Urine Turbidity Clear (Clear) 12/01/19 15:40 Urine pH 5.0 (5.0-7.0) 12/01/19 15:40 Ur Specific [place] 1.018 (1.003-1.030) 12/01/19 15:40 Urine Protein <15 mg/dl mg/dL (Negative) 12/01/19 15:40 Urine Glucose (UA) 50 mg/dL (Negative) 12/01/19 15:40 Urine Ketones Neg mg/dL (Negative) 12/01/19 15:40 Urine Blood Lg (Negative) 12/01/19 15:40 Urine Nitrite Neg (Negative) 12/01/19 15:40 Urine Bilirubin Neg (Negative) 12/01/19 15:40 Urine Urobilinogen < 2.0 mg/dL (<2.0) 12/01/19 15:40 Ur Leukocyte Esterase Lg (Negative) 12/01/19 15:40 Urine WBC (Auto) 6.0 /HPF (0.0-6.0) 12/01/19 15:40 Urine RBC (Auto) 5.0 /HPF (0.0-6.0) 12/01/19 15:40 U Epithel Cells (Auto) 5.0 /HPF (0-13.0) 12/01/19 15:40 Urine Bacteria (Auto) 1+ /HPF (Negative) 12/01/19 15:40 Urine Mucus Few /HPF 12/01/19 15:40 Blood Type O POSITIVE 12/04/19 10:52 Antibody Screen Negative 12/04/19 10:52 Crossmatch See Detail 12/04/19 10:52 Active Medications - Current Medications Current Medications: Generic Name Dose Route Start Last Admin Trade Name Freq PRN Reason Stop Dose Admin Acetaminophen 650 mg 12/01/19 21:36 Tylenol PO Q4H PRN Pain MILD(1-3)/Fever >100.5/DRISCOLL Acetaminophen/Hydrocodone Bitart 1 each 12/04/19 11:01 [place] 7.5/325 PO Q6HR PRN PAIN (4-6) Aspirin 81 mg 12/05/19 17:00 12/05/19 17:35 Halfprin Ec PO 81 mg DAILY ALYSSA Administration Atorvastatin Calcium 40 mg 12/04/19 22:00 12/04/19 21:54 Lipitor PO 40 mg QHS ALYSSA Administration Docusate Sodium 100 mg 12/04/19 22:00 12/05/19 10:57 Colace PO 100 mg BID ALYSSA Administration Doxazosin Mesylate 4 mg 12/05/19 10:00 12/05/19 10:58 Cardura PO 4 mg DAILY ALYSSA Administration Hydralazine HCl 10 mg 12/02/19 02:02 12/03/19 04:11 Apresoline IV 10 mg Q6HR PRN Administration Blood Pressure Sodium Chloride 1,000 mls @ 42 mls/hr 12/01/19 21:45 12/04/19 14:56 Nacl 0.9% 1000 Ml IV 75 mls/hr DIRECT ALYSSA Administration Insulin Human Lispro 0 unit 12/02/19 00:00 12/05/19 17:35 Humalog SUB-Q Not Given Q6HR [facility] Protocol Labetalol HCl 100 mg 12/04/19 17:00 12/05/19 14:03 Labetalol PO 100 mg Q8HR ALYSSA Administration Labetalol HCl 10 mg 12/04/19 16:11 12/04/19 16:55 Labetalol IV 10 mg Q6HR PRN Administration HYPERTENSION Magnesium Hydroxide 30 ml 12/05/19 12:00 12/05/19 12:32 Milk Of Magnesia PO 30 ml Q4H PRN Administration Constipation Morphine Sulfate 2 mg 12/01/19 21:36 12/02/19 17:57 Morphine IV 2 mg Q4H PRN Administration Pain, Moderate (4-6) Nifedipine 60 mg 12/04/19 16:10 12/05/19 10:57 Procardia Xl PO 60 mg Q12HR ALYSSA Administration Ondansetron HCl 4 mg 12/01/19 21:36 12/02/19 17:58 Zofran IV 4 mg Q8H PRN Administration Nausea And Vomiting Pantoprazole Sodium 40 mg 12/05/19 10:00 12/05/19 10:57 Protonix PO 40 mg QDAY ALYSSA Administration Potassium Chloride 8 meq 12/05/19 10:00 12/05/19 10:58 Klor-Con 8 PO 8 meq QDAY ALYSSA Administration Sodium Chloride 10 ml 12/01/19 22:00 12/05/19 10:59 Sodium Chloride Flush Syringe 10 Ml IV 10 ml BID ALYSSA Administration Sodium Chloride 10 ml 12/01/19 21:36 Sodium Chloride Flush Syringe 10 Ml IV PRN PRN LINE FLUSH Nutrition/Malnutrition Assess - Dietary Evaluation Nutrition/Malnutrition Findings: Nutrition Notes Start: 12/03/19 12: 15 Freq: Status: Active Protocol: Document 12/03/19 12:15 BARRETT (Rec: 12/03/19 12:29 [email or web address]) Nutrition Notes Need for Assessment generated from: MD Order Initial or Follow up Brief Note Current Diagnosis Diabetes,Hypertension, Hyperlipidemia Current Diet Mechanical soft Subjective/Other Information Pt screened for new onset DM. Pt satted she was dx with DM over 5 years ago. She does not check her blood sugar at home . RD provided education CHO servings, meal planning, and label reading. Pt asked if she can still drink soda sometimes. RD encouraged pt to drink small 8oz cans and to remember to count them as CHO servings. Minimum of two criteria No physical signs of malnutrition #1 Nutrition Diagnosis Limited adherence to nutrition -related recommendations Etiology Pt Recieved consistent CHO education before As Evidenced by Signs and Symptoms Pt stated she had recieved education on consistent CHO diet before, but did not remember much of it Nutrition Intervention Change Diet Order: mechanical soft with consistwnt CHO modification Teaching Recipient Patient Learning Readiness Good Teaching Methods Discussion,Handout Education Handouts Provided Carbohydrate Counting for People With Diabetes, Using the Food Label: Carbohydrates Anticipated Discharge Needs: Conssitent CHO diet Revisit per MD consult or patient Sign Off request:
[2019-12-05 21:17] LABS: Hematocrit 21.5 % (30.3-42.9); Hemoglobin 7.4 gm/dl (10.1-14.3)
[2019-12-06] MEDS: INSULIN LISPRO 100 UNIT/ML SUB-Q SCH ×3 (00:26→13:10)
[2019-12-06] MEDS: SODIUM CHLORIDE 0.9% 1000 ML 1,000 ML IV SCH (01:57)
[2019-12-06 04:30] LABS: Hematocrit 22.7 % (30.3-42.9); Hemoglobin 7.7 gm/dl (10.1-14.3); Mean Corpuscular HGB Conc 34 % (30-34); Mean Corpuscular Volume 81 fl (79-97); Platelet Count 294 K/mm3 (140-440); Red Blood Count 2.82 M/mm3 (3.65-5.03)
[2019-12-06 05:04] LABS: Calcium 8.6 mg/dL (8.4-10.2)
[2019-12-06] MEDS ORDERED: POTASSIUM CHLORIDE ER 20 MEQ TAB PO NR (07:17)
[2019-12-06] MEDS ORDERED: SODIUM CHLORIDE 0.9% 500 ML 500 ML IV SCH (08:00)
[2019-12-06] MEDS: NIFEdipine XL 30 MG TAB PO SCH (09:50)
[2019-12-06] MEDS: ASPIRIN EC 81 MG TAB PO SCH (09:50)
[2019-12-06] MEDS: DOXAZOSIN 4 MG TAB PO SCH (09:50)
[2019-12-06] MEDS: DOCUSATE SODIUM 100 MG CAP PO SCH (09:52)
[2019-12-06] MEDS: PANTOPRAZOLE 40 MG TAB PO SCH (09:52)
[2019-12-06 09:53] VITALS: BP 121/60
[2019-12-06] MEDS: POTASSIUM CHLORIDE ER 8 MEQ TAB PO SCH (10:00)
[2019-12-08] MEDS ORDERED: cloNIDine TTS 0.2 MG/24 HR PATCH TD SCH (10:00)
== END 2019-12-06 14:45 | disposition home health service (06) | DRG 377 ==
LOC: ED 11:47 → 4A 17:14
PROVIDERS: ADMIT Internal Medicine; ATTEND Internal Medicine
PROC: 30233N1 Transfusion of Nonautologous Red Blood Cells into Peripheral Vein, Percutaneous Approach (ICD-10-PCS; principal; 2019-12-01)
PROC: 0DB68ZX Excision of Stomach, Via Natural or Artificial Opening Endoscopic, Diagnostic (ICD-10-PCS; 2019-12-02)
DX: K26.4 Chronic or unspecified duodenal ulcer with hemorrhage (principal); N17.0 Acute kidney failure with tubular necrosis; I16.1 Hypertensive emergency; D64.9 Anemia, unspecified; I25.10 Atherosclerotic heart disease of native coronary artery without angina pectoris; K44.9 Diaphragmatic hernia without obstruction or gangrene; I10 Essential (primary) hypertension; K21.9 Gastro-esophageal reflux disease without esophagitis; E11.51 Type 2 diabetes mellitus with diabetic peripheral angiopathy without gangrene; E78.5 Hyperlipidemia, unspecified; Z87.442 Personal history of urinary calculi; Z88.1 Allergy status to other antibiotic agents; Z79.899 Other long term (current) drug therapy; Z79.82 Long term (current) use of aspirin; Z90.710 Acquired absence of both cervix and uterus; Z82.49 Family history of ischemic heart disease and other diseases of the circulatory system
CPT/HCPCS: 36415; 74177; 80048; 80053; 81001; 82140; 82270; 82962; 83036; 83690; 84484; 85014; 85018; 85025; 85027; 85610; 85730; 86850; 86900; 86901; 86920; 88305; 88342; 93005; 93010; 96365; G0378; A9270-GY; C9113; J0360; J1170; J1815; J2270; J2405; J2704; J3010; J7030; J7040; P9016; Q9967